=== PATIENT | female | born 1980 | race Caucasian/White ===

== ENCOUNTER 2021-04-28 12:49 | Emergency (ER) | payer OTHER ==
--- OUTSIDE RECORDS SUMMARY | 2021-04-28 12:53 | XMS REPORT | Continuity of Care Document ---
:1980 Author Organization [facility] t Address [address] [place] [address] Care Team Providers Name Role Phone Asked, Pcp Primary Care Physician Unavailable Caroline SINGH Attending Clinician Unavailable José PERES Attending Clinician Unavailable Charles VALENCIA Attending Clinician Unavailable Ritesh GAMBLE Attending Clinician Jossie Escobar LVN Attending Clinician Unavailable Jose Maria Attending Clinician Unavailable Jose Maria Attending Clinician Unavailable Jose Maria Admitting Clinician Unavailable Payers Payer Name Policy Type Policy Number Effective Date Expiration Date S terrie [facility] [id number] 2019 SSI 00:00:00 [facility] [id number] 2019 [facility] 00:00:00 Health [employer] [id number] 2018-Pr [phone]. [id number] [place] [address] Problems Condition Condition Condition Status Onset Resolution Last Treating Co mments Source Name Details Category Date Date Treatment Clinician Date Unspecifie Unspecifie Disease Active Overview : Russell d d 6-14 [facility] psychosis psychosis 00:00: g of this not due to not due to 00 note a a might be substance substance different or known or known from the physiologi physiologi original. miguel miguel [place] 1 condition condition Priority 1 Problem Problem Disease Active Overview: Phyllis is related to related to 05-15 [facility] primary primary 00:00: g of this support support 00 note group group might be different from the original. [place] 4 Priority 1 [place] V Disease Active Overview: Drew diagnosis diagnosis 6-14 [facility] 00:00: g of this 00 note might be different from the original. GAF Score:30 Allergies, Adverse Reactions, Alerts Allergy Allergy Status Severity Reaction(s) Onset Inactive Treating Comm ents Source Name Type Date Date Clinician kaylie DA Active [facility]14 Clear 00:00: Gr 00 [facility] lurasido DA Active U [facility] ne 12-15 Clear 00:00: Gr 00 [facility] No Known DA Active U 2018-12 [facility] Allergie 1-19 [facility] Lurasido Propensi Active Other Dystonic Phyllis is ne ty to 6-28 reaction Health adverse 00:00: reaction 00 s to drug Quetiapi Propensi Active Other alopecia Phyllis is ne ty to 6-28 Health adverse 00:00: reaction 00 s to drug No Known DA Active U [facility] Allergie 5-23 [facility] Social History Social Habit Start Date Stop Date Quantity Comments Source Sex Assigned At [facility] Tobacco use and 2021-03-28 2021-03-28 Never used [facility] exposure 00:00:00 00:00:00 Alcohol intake 2018-03-03 2018-03-03 Current [facility] 00:00:00 00:00:00 non-drinker of alcohol (finding) Smoking Status Start Date Stop Date Source Current every day smoker 2021-03-28 00:00:00 [facility] Former smoker 2018-03-03 00:00:00 2018-03-03 00:00:00 [facility] Medications Ordered Filled Start Stop Current Ordering Indication Dosage Frequency Signature Comments Components Source Medication Medication Date Date Medication? Clinician (SIG) Name Name lithium Yes Bipolar 1 300mg Take 1 Jacobson rris carbonate 03-28 disorder capsule by [facility] (ESKALI) 00:00: mouth 2 300 mg 00 times capsule daily (with meals) Take one tab in morning 300mg and one in evening 300mg for a week and then increase the evening dose to two tab 600mg. benztropine Yes Bipolar 1 TAKE 1 Drew (COGENTIN) 03-22 disorder TABLET BY [facility] 0.5 mg 00:00: MOUTH tablet 00 TWICE DAILY paliperidon Yes 156mg Harri s e (INVEGA 03-09 [facility] 00:00: 156 mg/mL 00 injection 156 mg haloperidoL 2020- No Bipolar 1 5mg Q.5D Take 1 Russell (HALDOL) 5 02-21- disorder tablet by [facility] mg tablet 00:00: 00:00 mouth 2 00 :00 times daily. haloperidol No 50mg Harri s decanoate 02-06- [facility] (HALDOL 14:30: 14:36 DECANOATE) 00 :00 100 mg/mL injection 50 mg haloperidol No 50mg Harri s decanoate 12-15 Health (HALDOL 00:00: 15:09 DECANOATE) 00 :00 100 mg/mL injection 50 mg haloperidol No Bipolar 1 75mg Inject Russell decanoate 12-14 disorder 0.75 mL He alth (HALDOL 00:00: 00:00 intramuscu DECANOATE) 00 :00 larly 100 mg/mL every 28 injection days. divalproex 2019-12 No Bipolar 1 500mg Take 1 Drew (DEPAKOTE 01-23- disorder tablet by [facility] ER) 500 mg 00:00: 00:00 mouth at extended 00 :00 bedtime release nightly. tablet benztropine 2019-12 No Bipolar 1 .5mg Q.5D Take 1 Drew (COGENTIN) 01-23- disorder tablet by [facility] 0.5 mg 00:00: 00:00 mouth 2 tablet 00 :00 times daily. hydrOXYzine 2019-12 No Bipolar 1 25mg Take 1 Drew (ATARAX) 25 01-23 disorder tablet by Health mg tablet 00:00: 23:59 mouth 2 00 :00 times daily as needed for up to 90 days for Anxiety or Insomnia. haloperidoL 2019-12 Bipolar 1 5mg Q.5D Take 1 Russell (HALDOL) 5 01-23 disorder tablet by Health mg tablet 00:00: 00:00 mouth 2 00 :00 times daily. haloperidol 2019-12 No 50mg Harri s decanoate 12-21 Health (HALDOL 00:00: 12:50 DECANOATE) 00 :00 100 mg/mL injection 50 mg divalproex 2019-12 Bipolar 1 500mg Take 1 [facility] (DEPAKOTE 11-22 disorder tablet by [facility] ER) 500 mg 00:00: 00:00 mouth at extended 00 :00 bedtime release nightly. tablet hydrOXYzine 2019-12 Bipolar 1 25mg Take 1 Russell (ATARAX) 25 11-22 disorder tablet by [facility] mg tablet 00:00: 00:00 mouth 3 00 :00 times daily as needed for up to 90 days for Anxiety or Insomnia. paliperidon No Bipolar 1 12mg Take 2 Russell e (INVEGA) 12-10 disorder tablets by [facility] 6 mg 00:00: 00:00 mouth extended 00 :00 every release morning. tablet lamoTRIgine No Bipolar 1 100mg QD Take 1 Russell (LAMICTAL) 12-10 disorder tablet by [facility] 100 mg 00:00: 00:00 mouth tablet 00 :00 daily. Immunizations Ordered Immunization Filled Immunization Date Status Commen ts Source Name Name Tdap (Tetanus 2017-03-06 Completed [facility] Toxoid, Reduced 00:00:00 Diphtheria Toxoid And Acellular Pertussis, Absorbed) Vital Signs Vital Name Observation Time Observation Value Comments Source Systolic blood pressure 2020-05-15 22:43:13 134 mm[Hg] [facility] Diastolic blood pressure 2020-05-15 22:43:13 83 mm[Hg] [facility] Heart rate 2020-05-15 22:43:13 96 /min [facility] ealt Body temperature 2020-05-15 22:43:13 36.78 [facility] is [facility] Respiratory rate 2020-05-15 22:43:13 18 /min [facility] Body height 2020-05-15 22:43:13 167.6 cm [facility] Procedures Procedure Date / Time Performed Performing Clinician Hernan horta VALPROIC ACID 2021-03-24 14:17:00 Deric Singh Drew cameron URINE DRUG SCREEN 2021-03-24 14:17:00 Deric Singh [facility] Plan of Care Planned Activity Planned Date Details Comments Source Future Scheduled 2021-09-01 IMM Influenza Drew [facility] Test 00:00:00 Seasonal Sep to January (>/= 19 yrs) [code = IMM Influenza Seasonal Sep to January (>/= 19 yrs)] Future Scheduled 2021-07-02 INFLUENZA VACCINE [place] [facility] Test 00:00:00 [code = INFLUENZA VACCINE] Future Scheduled 2018 Breast Cancer Scrn [facility] Test 00:00:00 (Yearly) [code = Breast Cancer Scrn (Yearly)] Future Scheduled 2008 Screening for Drew [facility] lt Test 00:00:00 malignant neoplasm of cervix (procedure) [code = 929969036] Future Scheduled 2008 Screening for Drew [facility] Test 00:00:00 malignant neoplasm of cervix (procedure) [code = 027813094] Future Scheduled 1999 Screening for [facility] thodi Test 00:00:00 malignant neoplasm of cervix (procedure) [code = 812905830] Future Scheduled 1994 COVID-19 Vaccine (1) [facility] Test 00:00:00 [code = COVID-19 Vaccine (1)] Future Scheduled 1990 COVID-19 VACCINE (1) [facility] Test 00:00:00 [code = COVID-19 VACCINE (1)] Encounters Start End Encounter Admission Attending Care Care Encounter Source Date/Time Date/Time Type Type Clinicians Facility Department ID 2021-06-13 2021-06-13 Outpatient DERIC SINGH [facility] [id number] Russell 00:00:00 00:00:00 Health 2021-04-25 2021-04-25 Outpatient [facility] [id number] [place] 00:00:00 00:00:00 Health 2021-04-25 2021-04-25 Outpatient [facility] [id number] [place] 00:00:00 00:00:00 Health 2021-04-17 2021-04-17 Outpatient [facility] [id number] Russell 00:00:00 00:00:00 [facility] 2021-04-17 2021-04-17 Outpatient [facility] [id number] Russell 00:00:00 00:00:00 [facility] 2021-03-28 2021-03-28 [id number] Russell 07:35:40 13:42:16 [facility] 2021-03-24 2021-03-24 [id number] Russell 14:17:05 14:17:28 [facility] 2021-03-24 2021-03-24 [facility] [id number] [place] 00:00:00 00:00:00 [facility] 2021-03-23 2021-03-23 Outpatient [facility] [id number] [place] 00:00:00 00:00:00 [facility] 2021-03-17 2021-03-17 [facility] [id number] [place] 14:59:34 14:59:57 [facility] 2021-03-17 2021-03-17 [facility] [id number] [place] 13:40:49 14:31:53 [facility] 2021-03-16 2021-03-16 Outpatient [facility] [id number] Russell 00:00:00 00:00:00 [facility] 2021-03-13 2021-03-13 Outpatient [facility] [id number] Russell 00:00:00 00:00:00 [facility] 2021-03-13 2021-03-13 Outpatient [facility] [id number] Russell 00:00:00 00:00:00 [facility] 2021-03-09 2021-03-09 Outpatient [facility] [id number] Russell 00:00:00 00:00:00 [facility] 2021-03-09 2021-03-09 Out[facility]INGH[facility] [id number] Russell 00:00:00 00:00:00 [facility] 2021-02-21 2021-02-21 [id number] Russell 07:39:21 16:15:45 [facility] 2021-02-06 2021-02-06 [id number] Russell 14:07:18 14:45:35 Health 2021-02-02 2021-02-02 Outpatient [facility] [id number] [place] 00:00:00 00:00:00 Health 2021-01-18 2021-01-18 Outpatient [facility] [id number] [place] 00:00:00 00:00:00 [facility] 2020-07-10 2020-07-25 Inpatient 1 Eloy Moise [facility] [id number] 14:13:00 17:30:00 Eloy Moise [facility] 2020-07-10 2020-07-10 Emergency [facility] [id number] 14:13:00 14:13:00 -[id number] [facility] 2020-03-17 2020-03-17 Outpatient [facility] [id number] [place] 00:00:00 00:00:00 [facility] 2020-02-04 2020-02-04 Outpatient [facility] [id number] [place] 00:00:00 00:00:00 [facility] 2019-12-10 2019-12-10 Outpatient [facility] [id number] [place] 10:54:01 10:54:01 [facility] 2019-11-12 2019-11-12 Outpatient [facility] [id number] [place] 00:00:00 00:00:00 [facility] 2019-09-10 2019-09-10 Outpatient [facility] [id number] [place] 08:11:17 08:11:17 [facility] 2019-09-10 2019-09-10 Outpatient [facility] [id number] [place] 00:00:00 00:00:00 [facility] 2019-09-03 2019-09-03 Outpatient [facility] [id number] [place] 12:57:21 12:57:21 Health 2019-08-21 2019-08-21 Outpatient [facility] [id number] [place] 00:00:00 00:00:00 [facility] 2019-05-29 2019-05-29 Outpatient [facility] [id number] [place] 13:55:46 13:55:46 Health Results Test Description Test Time Test Comments Results Result Comments Source POC Glucose 2020-07-22 11:12:55 Test Item Value Reference Range Interpretation Comme nts Glucose POC (test code = 149 mg/dL 70-115 H Not josie RN or MDIf you consider your Glucose POC) patient critica lly ill, the Jade-Accu Chec k Infrom II meter should not be u sed for Glucose determination. Draw a venous Glucose and send to the main Lab for analysis. Urine [id number] 10:59:13 C Urine Added by [id number] growth at 24 hours. No growth at 48 hours.RPR [id number] 15:47:25 Test Item Value Reference Range Interpretation Comments RPR Qual (test code = RPR Qual) Non-Reactive Non-Reactive Reactive Control (test code = Reactive Reactive Control) Weak Reactive Control (test Weak Reactive code = Weak Reactive Control) Non-Reactive Control (test code Non-Reactive = Non-Reactive Control) Lot # (test code = Lot #) [id number] Expiration Dt (test code = 08-31-21 N Expiration Dt) Lipid [id number] 13:28:37 Test Item Value Reference Range Interpretation Comments Cholesterol Total 143 mg/dL N Low-risk l evel (test code = (desirable) - < 200 Cholesterol Total) mg/dlMode rate-risk level (borderli ne) - 200-239 mg/dlHigh-risk level - ?240 mg/dl Triglycerides (test 80 mg/dL N Normal - <150 code = Triglycerides) mg/dlB orderline high - 150-199 mg/dl High - 200-499 mg/dl Very high - ?500 mg/ dl HDL (test code = HDL) 46.50 mg/dL N Low-ri sk level (desirable) - ? 60 mg/dlHigh-risk level (undesirable) - <40 mg/dl LDL (test code = LDL) 80 mg/dL N The eq uation being used in this calculation is LDL = (Chol - HDL) - (Trig / 5) VLDL (test code = 16 mg/dL 5-40 The equati on being VLDL) used in this calculation is VLDL = Trig / 5 Chol/HDL (test code = 3.1 ratio <=5.0 Chol/HDL) LDL/HDL Ratio (test 3 N The equa tion being code = LDL/HDL Ratio) used i n this calculation is LDL/HDL Ratio=L DL Calc/HDL Chol Thyroid Stimulating [id number] 13:28:37 Test Item Value Reference Range Interpretation Comments TSH (test code = TSH) 0.900 mcIU/mL 0.550-4.780 Hemoglobin [id number] 05:44:54 Test Item Value Reference Range Interpretation Comments Hemoglobin A1c (test code 4.4 % 4.0-5.8 Di abetic >=6.5 = Hemoglobin A1c) %Prediabet es 5.7-6.4 %Normal <5.7 % Novel Coronavirus SARS-CoV-2, [id number] 19:32:38 Test Item Value Reference Range Interpretation Comments SARS-CoV-2 PCR NEGATIVE Negative Positive resu lts are (test code = indicative of a ctive SARS-CoV-2 PCR) infection wi th SARS-CoV-2; clinical correl ation with patient history and other diagnostic info rmation is necessary to de termine patient infecti on status.Presumpt myron positive result s -INTERPRET WITH CAUTION: Resul t may not reflect if andrei ent is actually positi ve. Patient should be treat ed based on clinical suspic ions. Negative result s do not preclude SARS-C oV-2 infection and s hould not be used as the sole basis for treatment o r other patient managem ent decisions. Nega tive results must be combined with clinical observations, p atient history, and epidemiological information.The Xpert Xpress SARS-CoV -2 test is only for use un howie the Food and Drug Administration s Emergency Use Authorization." Urine [id number] [id number] 17:10:11 Test Item Value Reference Range Interpretation Comments Amphetamine Screen Ur Negative Negative The sp ecimen is (test code = presumptive pos itive Amphetamine Screen Ur) if th e analyte concentration i s equal to or greater t meraz 1000 ng/ml.If confirmation of positive result is desired, please order Amphetamine Confirmation, U rine within 7 days. Barbiturate Screen Ur Negative Negative The sp ecimen is (test code = presumptive pos itive Barbiturate Screen Ur) if th e analyte concentration i s equal to or greater t meraz 200 ng/ml.If confir mation of positive res ult is desired, please order Barbiturate Confirmation, U rine within 7 days. Benzodiazepines Ur Negative Negative The speci men is (test code = presumptive pos itive Benzodiazepines Ur) if the a nalyte concentration i s equal to or greater t meraz 200 ng/ml.If confir mation of positive res ult is desired, please order Benzodiazephine Confirmation, U rine within 7 days. Cocaine Screen Ur (test Negative Negative The specimen is code = Cocaine Screen presum ptive positive Ur) if the analyte concentration i s equal to or greater t meraz 300 ng/ml.If confir mation of positive res ult is desired, please order Cocaine Metabol ite Confirmation, U rine within 7 days. Opiate Screen Ur (test Negative Negative The s pecimen is code = Opiate Screen presump tive positive Ur) if the analyte concentration i s equal to or greater t meraz 2000 ng/ml.If confirmation of positive result is desired, please order Opiate Confirm ation, Urine within 7 days. U PCP Scrn (test code = Negative Negative The specimen is U PCP Scrn) presumptive pos itive if the analyte concentration i s equal to or greater t meraz 25 ng/ml.If confir mation of positive res ult is desired, please order Phencyclidine Confirmation, U rine within 7 days. Cannabinoid Screen Ur Negative Negative The sp ecimen is (test code = presumptive pos itive Cannabinoid Screen Ur) if th e analyte concentration i s equal to or greater t meraz 50 ng/ml.If confir mation of positive res ult is desired, please order Cannabinoid (TH C) Confirmation, U rine within 7 days. U Methadone Scr (test Negative Negative The sp ecimen is code = U Methadone Scr) pres umptive positive if the analyte concentration i s equal to or greater t meraz 300 ng/ml.If confir mation of positive res ult is desired, please order Methadone Confirmation, U rine within 7 days. U Propoxyphene (test Negative Negative The spe cimen is code = U Propoxyphene) presu mptive positive if the analyte concentration i s equal to or greater t meraz 300 ng/ml.If confir mation of positive res ult is desired, please order Propoxyphene Confirmation wi thin 7 days. Urinalysis [id number] 15:39:45 Test Item Value Reference Range Interpretation Comments UA WBC (test code = UA WBC) 0-5 0-5 UA RBC (test code = UA RBC) 6-10 0-5 A UA Bacteria (test code = UA Bacteria) Few A UA Squam Epithelial (test code = UA 6-10 A Squam Epithelial) UA Hyal Cast (test code = UA Hyal Cast) 6-10 A HCG Qualitative [id number] 15:35:32 Test Item Value Reference Range Interpretation Comments hCG Ur (test code = Negative If the r esult is hCG Ur) "Negative" in p atients suspected to be , recom mend retest with a s ample obtained 48 to 72 hours later, or by ordering a quantitative as say. If the result i s "Borderline" te sting should be repea miko in 48 to 72 hours. Lot # (test code = [id number] Lot #) Expiration Dt (test N code = Expiration Dt) Neg Control (test Negative code = Neg Control) Pos Control (test Positive code = Pos Control) Internal QC (test Acceptable code = Internal QC) Comprehensive Metabolic [id number] 15:35:18 Test Item Value Reference Range Interpretation Comments Sodium Level (test code = Sodium 138.0 mmol/L 136.0-145.0 Level) Potassium Level (test code = 4.00 mmol/L 3.50-5.10 Potassium Level) Chloride Level (test code = 105.0 mmol/L 98.0-107.0 Chloride Level) CO2 (test code = CO2) 27 mmol/L 20-31 Anion Gap (test code = Anion 6.1 mmol/L 5.0-15.0 Gap) BUN (test code = BUN) 13 mg/dL 9-23 Creatinine Level (test code = 0.96 mg/dL 0.55-1.02 Creatinine Level) BUN/Creat Ratio (test code = 13.5 ratio 10.0-20.0 BUN/Creat Ratio) Glucose Level (test code = 99 mg/dL 74-106 Glucose Level) Calcium Level (test code = 9.0 mg/dL 8.3-10.6 Calcium Level) Alk Phos (test code = Alk Phos) 102 U/L 46-116 Bilirubin Total (test code = 1.2 mg/dL 0.2-1.1 H Bilirubin Total) Albumin Level (test code = 4.1 g/dL 3.2-4.8 Albumin Level) Protein Total (test code = 6.8 g/dL 5.7-8.2 Protein Total) ALT (test code = ALT) 33 U/L 10-49 AST (test code = AST) 61 U/L <=34 H Globulin (test code = Globulin) 2.7 g/dL 2.3-3.5 A/G Ratio (test code = A/G 1.5 g/dL 0.8-2.0 Ratio) Hemolysis (test code = 0 g/dL 1-2 Hemolysis) Icterus (test code = Icterus) 0 g/dL 1-2 Lipemia (test code = Lipemia) 0 g/dL 1-2 Comprehensive Metabolic [id number] 15:35:18 Test Item Value Reference Range Interpretation Comments Sodium Level (test 138.0 mmol/L 136.0-145.0 code = Sodium Level) Potassium Level 4.00 mmol/L 3.50-5.10 (test code = Potassium Level) Chloride Level (test 105.0 mmol/L 98.0-107.0 code = Chloride Level) CO2 (test code = 27 mmol/L 20-31 CO2) Anion Gap (test code 6.1 mmol/L 5.0-15.0 = Anion Gap) BUN (test code = 13 mg/dL 9-23 BUN) Creatinine Level 0.96 mg/dL 0.55-1.02 (test code = Creatinine Level) BUN/Creat Ratio 13.5 ratio 10.0-20.0 (test code = BUN/Creat Ratio) Glucose Level (test 99 mg/dL 74-106 code = Glucose Level) Calcium Level (test 9.0 mg/dL 8.3-10.6 code = Calcium Level) Alk Phos (test code 102 U/L 46-116 = Alk Phos) Bilirubin Total 1.2 mg/dL 0.2-1.1 H (test code = Bilirubin Total) Albumin Level (test 4.1 g/dL 3.2-4.8 code = Albumin Level) Protein Total (test 6.8 g/dL 5.7-8.2 code = Protein Total) ALT (test code = 33 U/L 10-49 ALT) AST (test code = 61 U/L <=34 H AST) Globulin (test code 2.7 g/dL 2.3-3.5 = Globulin) A/G Ratio (test code 1.5 g/dL 0.8-2.0 = A/G Ratio) eGFR AA (test code = >60 >=60 eGFR (e stimated eGFR AA) mL/min/1.73 m2 Glomerular Filtration Rate ) is an estimated va lue, calculated from the patient's serum creatinine usin g the MDRD equation. It is NOT the patient 's actual GFR. The eGFR provides a more clinically usef ul measure of kidn ey disease than se rum creatinine alone.This calculation don es sex and race in to account, if the information is provided. If th e race is not provided, and t he patient is -Rama n, multiply by 1.2 12. If sex is not provided, and t he patient is fema le, multiply by 0.7 42. Results for pat ients <18 years of ag e have not been validated by th e MDRD study and should be interpreted wit h caution. eGFR R esult Interpretation: eGFR > or = 60 is in the Normal RangeeGF R < 60 may mean kid constantino diseaseeGFR < 1 5 may mean kidney failure Rang es recommended by the National Kidney Foundation, http://nkdep.ni h.gov Hemolysis (test code 0 g/dL 1-2 = Hemolysis) Icterus (test code = 0 g/dL 1-2 Icterus) Lipemia (test code = 0 g/dL 1-2 Lipemia) Alcohol [id number] 15:35:18 Test Item Value Reference Range Interpretation Comments Ethanol Level <3.0 mg/dL N The pharmacolo gical (test code = response to blo od alcohol Ethanol Level) levels may va ry from individual to i ndividual. The fatal afsaneh ntration has been report ed to be >400 mg/dl. Comprehensive Metabolic [id number] 15:35:18 Test Item Value Reference Range Interpretation Comments Sodium Level (test 138.0 mmol/L 136.0-145.0 code = Sodium Level) Potassium Level 4.00 mmol/L 3.50-5.10 (test code = Potassium Level) Chloride Level (test 105.0 mmol/L 98.0-107.0 code = Chloride Level) CO2 (test code = 27 mmol/L 20-31 CO2) Anion Gap (test code 6.1 mmol/L 5.0-15.0 = Anion Gap) BUN (test code = 13 mg/dL 9-23 BUN) Creatinine Level 0.96 mg/dL 0.55-1.02 (test code = Creatinine Level) BUN/Creat Ratio 13.5 ratio 10.0-20.0 (test code = BUN/Creat Ratio) Glucose Level (test 99 mg/dL 74-106 code = Glucose Level) Calcium Level (test 9.0 mg/dL 8.3-10.6 code = Calcium Level) Alk Phos (test code 102 U/L 46-116 = Alk Phos) Bilirubin Total 1.2 mg/dL 0.2-1.1 H (test code = Bilirubin Total) Albumin Level (test 4.1 g/dL 3.2-4.8 code = Albumin Level) Protein Total (test 6.8 g/dL 5.7-8.2 code = Protein Total) ALT (test code = 33 U/L 10-49 ALT) AST (test code = 61 U/L <=34 H AST) Globulin (test code 2.7 g/dL 2.3-3.5 = Globulin) A/G Ratio (test code 1.5 g/dL 0.8-2.0 = A/G Ratio) eGFR AA (test code = >60 >=60 eGFR (e stimated eGFR AA) mL/min/1.73 m2 Glomerular Filtration Rate ) is an estimated va lue, calculated from the patient's serum creatinine usin g the MDRD equation. It is NOT the patient 's actual GFR. The eGFR provides a more clinically usef ul measure of kidn ey disease than se rum creatinine alone.This calculation don es sex and race in to account, if the information is provided. If th e race is not provided, and t he patient is -Rama n, multiply by 1.2 12. If sex is not provided, and t he patient is fema le, multiply by 0.7 42. Results for pat ients <18 years of ag e have not been validated by th e MDRD study and should be interpreted wit h caution. eGFR R esult Interpretation: eGFR > or = 60 is in the Normal RangeeGF R < 60 may mean kid constantino diseaseeGFR < 1 5 may mean kidney failure Rang es recommended by the National Kidney Foundation, http://nkdep.ni h.gov eGFR Non-AA (test >60.00 >=60.00 eGFR (jason mated code = eGFR Non-AA) mL/min/1.73 m2 Glomer ular Filtration Rate ) is an estimated va lue, calculated from the patient's serum creatinine usin g the MDRD equation. It is NOT the patient 's actual GFR. The eGFR provides a more clinically usef ul measure of kidn ey disease than se rum creatinine alone.This calculation don es sex and race in to account, if the information is provided. If th e race is not provided, and t he patient is -Rama n, multiply by 1.2 12. If sex is not provided, and t he patient is fema le, multiply by 0.7 42. Results for pat ients <18 years of ag e have not been validated by th e MDRD study and should be interpreted wit h caution. eGFR R esult Interpretation: eGFR > or = 60 is in the Normal RangeeGF R < 60 may mean kid constantino diseaseeGFR < 1 5 may mean kidney failure Rang es recommended by the National Kidney Foundation, http://nkdep.ni h.gov Hemolysis (test code 0 g/dL 1-2 = Hemolysis) Icterus (test code = 0 g/dL 1-2 Icterus) Lipemia (test code = 0 g/dL 1-2 Lipemia) Urinalysis with Culture, if [id number] 15:34:24 Test Item Value Reference Range Interpretation Comments UA Color (test code = UA Color) YELLO Yellow UA Appear (test code = UA Appear) CLEAR Clear UA pH (test code = UA pH) 6.0 UA Spec Grav (test code = UA Spec 1.030 1.001-1.035 Grav) UA Glucose (test code = UA Glucose) NEG Negative UA Bili (test code = UA Bili) 1 mg/dL Negative A UA Ketones (test code = UA Ketones) 5 mg/dL Negative UA Blood (test code = UA Blood) MOD Negative A UA Protein (test code = UA Protein) 25 mg/dL Negative A UA Urobilinogen (test code = UA .2 mg/dL >0.2 Urobilinogen) UA Nitrite (test code = UA Nitrite) NEG Negative UA Leuk Est (test code = UA Leuk NEG Negative Est) UA Micro Ind? (test code = UA Micro Indicated Not Indicated A Ind?) Complete Blood Count with [id number] 15:14:36 Test Item Value Reference Range Interpretation Comments WBC (test code = WBC) 9.5 x10 4.4-10.5 RBC (test code = RBC) 4.56 x10 3.75-5.20 Hgb (test code = Hgb) 14.1 g/dL 12.2-14.8 MCV (test code = MCV) 99.30 fL 80.00-100.00 Hct (test code = Hct) 45.3 % 36.5-44.4 H MCHC (test code = 31.10 g/dL 32.00-37.50 L MCHC) RDW CV (test code = 13.9 % 11.5-14.5 RDW CV) MCH (test code = MCH) 30.9 pg 27.0-32.5 Platelets (test code = 158.0 x10 140.0-440.0 Platelets) MPV (test code = MPV) 11.1 fL N Slide Review (test Auto Auto Result cr eated by code = Slide Review) GL_SJM_ SLIDE_REV_AUTO nRBC (test code = 0 N nRBC) NRBC Abs (test code = 0.00 x10 N NRBC Abs) IPF (test code = IPF) 0 % N Automated [id number] 15:14:36 Test Item Value Reference Range Interpretation Comments Neutro Auto (test code = Neutro 66.8 % 36.0-70.0 Auto) Lymph Auto (test code = Lymph Auto) 23.7 % 12.0-44.0 Elmore Auto (test code = Elmore Auto) 7.7 % 0.0-11.0 Eos, Auto (test code = Eos, Auto) 1.0 % 0.0-7.0 Basophil Auto (test code = Basophil 0.5 % 0.0-2.0 Auto) Neutro Absolute (test code = Neutro 6.3 x10 1.6-7.4 Absolute) Lymph Absolute (test code = Lymph 2.24 x10 .50-4.60 Absolute) Elmore Absolute (test code = Elmore .73 x10 .00-1.20 Absolute) Eos Absolute (test code = Eos 0.09 x10 0.00-0.74 Absolute) Baso Absolute (test code = Baso 0.05 x10 0.00-0.21 Absolute) IG [id number] 15:14:36 Test Item Value Reference Range Interpretation Comments IG (test code = IG) 0.3 % 0.0-5.0 IG Abs (test code = IG Abs) 0 x10 N BASIC METABOLIC [id number] 19:20:00 Test Item Value Reference Range Interpretation Comments SODIUM (test code = 137 mmol/L 136-145 N NA) POTASSIUM (test code 3.5 mmol/L 3.5-5.1 N = K) CHLORIDE (test code = 100.0 mmol/L 98-107 N CL) CARBON DIOXIDE (test 29.0 mmol/L 21-32 N code = CO2) ANION GAP (test code 11.5 10-20 N = GAP) GLUCOSE (test code = 94 mg/dL 74-106 N GLU) BLOOD UREA NITROGEN 15 mg/dL 7-18 N (test code = BUN) GLOMERULAR FILTRATION > 60 mL/min >=60 Estima miko GFR by RATE (test code = using Rosalio fied MDRD GFR) formula.Chronic kidney disease is defined as eith er kidney damageor GFR <60 mL/min/1.73 m2 for >3 months. CREATININE (test code 1.00 mg/dL 0.55-1.02 N Note change in = CREAT) reference range due to change in reagent. BUN/CREATININE RATIO 14.9 10-20 N (test code = BUN/CREA) CALCIUM (test code = 8.8 mg/dL 8.5-10.1 N CA) HEPATIC FUNCTION [id number] 19:20:00 Test Item Value Reference Range Interpretation Comments TOTAL PROTEIN (test 6.7 gram/dL 6.4-8.2 N code = PROT) ALBUMIN (test code = 3.4 g/dL 3.4-5.0 N ALB) GLOBULIN (test code = 3.3 gram/dL 2.7-4.2 N GLOB) ALBUMIN/GLOBULIN RATIO 1.0 0.75-1.50 N (test code = A/G) BILIRUBIN TOTAL (test 1.30 mg/dL 0.0-1.0 H code = BILT) BILIRUBIN DIRECT (test 0.41 mg/dL 0.0-0.20 H code = BILD) SGOT/AST (test code = 38 IUnit/L 15-37 H AST) SGPT/ALT (test code = 23 IUnit/L 12-78 N ALT) ALKALINE PHOSPHATASE 113 IUnit/L 45-117 N Note change in TOTAL (test code = reference range due ALKP) to change in reagent. [id number] 19:20:00 Test Item Value Reference Range Interpretation Comments ALCOHOL (test code < 3 mg/dL 0.0-3.0 N --------- --------INTERPRE = ALC) TIVE DATA NOTE: POSITIVE SCREEN ING RESULTS SHOULD BE CONSIDERED PRESUMPTIVE.WHE N COLLECTED FOR M EDICAL PURPOSES ONLY. SPECIMEN WILL NOTBE ANAIS ECTED BY CHAIN OF CUSTOD Y.IF A CONFIRMATION OF POSITIVE RESULTS IS ASIF RED, ACONFIRMATION T EST MUST BE REQUESTED BY THE PHYSICIAN AT AN ADDITIONAL CHARGE TO THE P [facility] URINALYSIS [id number] 19:20:00 Test Item Value Reference Range Interpretation Comments UA COLOR (test code = Light-Yellow YELLOW COLU) UA APPEARANCE (test code CLEAR CLEAR = APPU) UA GLUCOSE DIPSTICK (test NEGATIVE mg/dL NEGATIVE code = DGLUU) UA BILIRUBIN DIPSTICK NEGATIVE mg/dL NEGATIVE (test code = BILU) UA KETONE DIPSTICK (test NEGATIVE mg/dL NEGATIVE code = KETU) UA SPECIFIC GRAVITY (test 1.013 1.001-1.035 code = SGU) UA BLOOD DIPSTICK (test 1.0 mg/dL (3+) mg/dL NEGATIVE A code = ANA) UA PH DIPSTICK (test code 5.0 5.0-8.0 = BRYANNA) UA PROTEIN DIPSTICK (test NEGATIVE mg/dL NEGATIVE code = PROU) UA UROBILINIOGEN DIPSTICK Normal mg/dL NEGATIVE (test code = URO) UA NITRITE DIPSTICK (test NEGATIVE NEGATIVE code = ISHA) UA LEUKOCYTE ESTERASE W 250 Meagan/uL (2+) NEGATIVE A REFLEX (test code = Meagan/uL LEUUR) UA WBC (test code = WBCU) 11-20 per HPF 0-5 A UA RBC (test code = RBCU) 0-2 #/HPF 0-5 UA EPITHELIAL CELLS (test FEW per HPF FEW code = EPIU) UA BACTERIA (test code = FEW #/HPF NONE A BACU) UA MUCUS (test code = FEW #/LPF FEW MUCU) Urine Source? Clean CatchDRUGS OF ABUSE SCREEN [id number] 19:20:00 Test Item Value Reference Range Interpretation Comments URN COCAINE (test code = COCAURN) NEGATIVE <300 ng/mL URN CANNABINOIDS (test code = NEGATIVE <50 ng/mL CANNABURN) URN AMPHETAMINE (test code = NEGATIVE <1000 ng/mL AMPHETURN) URN BARBITURATE (test code = NEGATIVE <200 ng/mL BARBITURN) URN BENZODIAZEPINE (test code = NEGATIVE <200 ng/mL BENZOURN) URN OPIATES (test code = OPIATURN) NEGATIVE <300 ng/mL URN PHENCYCLIDINE (PCP) (test code = NEGATIVE <25 ng/mL PHENCURN) URN METHADONE (test code = METHAURN) NEGATIVE <300 ng/mL Urine Source? Clean CatchBASIC METABOLIC [id number] 19:13:00 Test Item Value Reference Range Interpretation Comments SODIUM (test code = NA) 137 mmol/L 136-145 N POTASSIUM (test code = K) 3.5 mmol/L 3.5-5.1 N CHLORIDE (test code = CL) 100.0 mmol/L 98-107 N CARBON DIOXIDE (test code = CO2) mmol/L 21-32 ANION GAP (test code = GAP) 10-20 GLUCOSE (test code = GLU) mg/dL 74-106 BLOOD UREA NITROGEN (test code = mg/dL 7-18 BUN) GLOMERULAR FILTRATION RATE (test mL/min >=60 code = GFR) CREATININE (test code = CREAT) mg/dL 0.55-1.02 BUN/CREATININE RATIO (test code 10-20 = BUN/CREA) CALCIUM (test code = CA) mg/dL 8.5-10.1 HEPATIC FUNCTION [id number] 19:13:00 Test Item Value Reference Range Interpretation Comments TOTAL PROTEIN (test code = PROT) gram/dL 6.4-8.2 ALBUMIN (test code = ALB) g/dL 3.4-5.0 GLOBULIN (test code = GLOB) gram/dL 2.7-4.2 ALBUMIN/GLOBULIN RATIO (test code = 0.75-1.50 A/G) BILIRUBIN TOTAL (test code = BILT) mg/dL 0.0-1.0 BILIRUBIN DIRECT (test code = BILD) mg/dL 0.0-0.20 SGOT/AST (test code = AST) IUnit/L 15-37 SGPT/ALT (test code = ALT) IUnit/L 12-78 ALKALINE PHOSPHATASE TOTAL (test IUnit/L 45-117 code = ALKP) [id number] 19:13:00 Test Item Value Reference Range Interpretation Comments ALCOHOL (test code = ALC) mg/dL 0-3 CBC W/O [id number] 19:03:00 Test Item Value Reference Range Interpretation Comments WHITE BLOOD CELL (test code = 8.5 K/mm3 4.5-12.5 N WBC) RED BLOOD CELL (test code = 4.38 mill/mm3 3.7-5.2 N RBC) HEMOGLOBIN (test code = HGB) 13.8 gram/dL 11.5-15.5 N HEMATOCRIT (test code = HCT) 41.5 % 36.0-46.0 N MEAN CELL VOLUME (test code = 94.7 fL 80-98 N MCV) MEAN CELL HGB (test code = MCH) 31.5 picogram 27.0-33.0 N MEAN CELL HGB CONCETRATION 33.3 gram/dL 33.0-36.0 N (test code = MCHC) RED CELL DISTRIBUTION WIDTH 13.9 % 11.6-16.2 N (test code = RDW) PLATELET COUNT (test code = 167 K/mm3 150-450 N PLT) MEAN PLATELET VOLUME (test code 11.0 fL 6.7-11.0 N = MPV) URINALYSIS [id number] 19:03:00 Test Item Value Reference Range Interpretation Comments UA COLOR (test code = Light-Yellow YELLOW COLU) UA APPEARANCE (test code CLEAR CLEAR = APPU) UA GLUCOSE DIPSTICK (test NEGATIVE mg/dL NEGATIVE code = DGLUU) UA BILIRUBIN DIPSTICK NEGATIVE mg/dL NEGATIVE (test code = BILU) UA KETONE DIPSTICK (test NEGATIVE mg/dL NEGATIVE code = KETU) UA SPECIFIC GRAVITY (test 1.013 1.001-1.035 code = SGU) UA BLOOD DIPSTICK (test 1.0 mg/dL (3+) mg/dL NEGATIVE A code = ANA) UA PH DIPSTICK (test code 5.0 5.0-8.0 = BRYANNA) UA PROTEIN DIPSTICK (test NEGATIVE mg/dL NEGATIVE code = PROU) UA UROBILINIOGEN DIPSTICK Normal mg/dL NEGATIVE (test code = URO) UA NITRITE DIPSTICK (test NEGATIVE NEGATIVE code = ISHA) UA LEUKOCYTE ESTERASE W 250 Meagan/uL (2+) NEGATIVE A REFLEX (test code = Meagan/uL LEUUR) UA WBC (test code = WBCU) 11-20 per HPF 0-5 A UA RBC (test code = RBCU) 0-2 #/HPF 0-5 UA EPITHELIAL CELLS (test FEW per HPF FEW code = EPIU) UA BACTERIA (test code = FEW #/HPF NONE A BACU) UA MUCUS (test code = FEW #/LPF FEW MUCU) Urine Source? Clean CatchDRUGS OF ABUSE SCREEN [id number] 19:03:00 Test Item Value Reference Range Interpretation Comments URN COCAINE (test code = COCAURN) <300 ng/mL URN CANNABINOIDS (test code = <50 ng/mL CANNABURN) URN AMPHETAMINE (test code = AMPHETURN) <1000 ng/mL URN BARBITURATE (test code = BARBITURN) <200 ng/mL URN BENZODIAZEPINE (test code = <200 ng/mL BENZOURN) URN OPIATES (test code = OPIATURN) <300 ng/mL URN PHENCYCLIDINE (PCP) (test code = <25 ng/mL PHENCURN) URN METHADONE (test code = METHAURN) <300 ng/mL Urine Source? Clean CatchCBC W/O [id number] 18:59:00 Test Item Value Reference Range Interpretation Comments WHITE BLOOD CELL (test code = K/mm3 4.5-12.5 WBC) RED BLOOD CELL (test code = RBC) mill/mm3 3.7-5.2 HEMOGLOBIN (test code = HGB) 13.8 gram/dL 11.5-15.5 N HEMATOCRIT (test code = HCT) 41.5 % 36.0-46.0 N MEAN CELL VOLUME (test code = fL 80-98 MCV) MEAN CELL HGB (test code = MCH) picogram 27.0-33.0 MEAN CELL HGB CONCETRATION (test gram/dL 33.0-36.0 code = MCHC) RED CELL DISTRIBUTION WIDTH % 11.6-16.2 (test code = RDW) PLATELET COUNT (test code = PLT) 167 K/mm3 150-450 N MEAN PLATELET VOLUME (test code fL 6.7-11.0 = MPV) URINALYSIS [id number] 10:57:00 Test Item Value Reference Range Interpretation Comments UA COLOR (test code = Light-Yellow YELLOW COLU) UA APPEARANCE (test code CLEAR CLEAR = APPU) UA GLUCOSE DIPSTICK (test NEGATIVE mg/dL NEGATIVE code = DGLUU) UA BILIRUBIN DIPSTICK NEGATIVE mg/dL NEGATIVE (test code = BILU) UA KETONE DIPSTICK (test TRACE mg/dL NEGATIVE A code = KETU) UA SPECIFIC GRAVITY (test 1.010 1.001-1.035 code = SGU) UA BLOOD DIPSTICK (test Negative mg/dL NEGATIVE code = ANA) UA PH DIPSTICK (test code 5.5 5.0-8.0 = BRYANNA) UA PROTEIN DIPSTICK (test NEGATIVE mg/dL NEGATIVE code = PROU) UA UROBILINIOGEN DIPSTICK Normal mg/dL NEGATIVE (test code = URO) UA NITRITE DIPSTICK (test NEGATIVE NEGATIVE code = ISHA) UA LEUKOCYTE ESTERASE W 75 Meagan/uL (1+) NEGATIVE A REFLEX (test code = Meagan/uL LEUUR) UA WBC (test code = WBCU) 0-5 per HPF 0-5 UA RBC (test code = RBCU) 0-2 #/HPF 0-5 UA EPITHELIAL CELLS (test FEW per HPF FEW code = EPIU) UA BACTERIA (test code = FEW #/HPF NONE A BACU) UA MUCUS (test code = FEW #/LPF FEW MUCU) Urine Source? Clean CatchDRUGS OF ABUSE SCREEN [id number] 10:57:00 Test Item Value Reference Range Interpretation Comments URN COCAINE (test NEGATIVE <300 ng/mL code = COCAURN) URN CANNABINOIDS NEGATIVE <50 ng/mL (test code = CANNABURN) URN AMPHETAMINE (test POSITIVE <1000 ng/mL A This t est provides only a code = AMPHETURN) preliminar y test result. A morespecific alternate chemical method must be used in order t oobtain a confirmed geeta tical result. Gas chromatography/ mass spectrometry (G C/MS) is thepreferred co nfirmatory method. Other chemical confirmationmet hods are available. Cli nical consideration a nd professional ju dgment should be appli ed to any drug of abusete st result, particularly wh en preliminary pos itive resultsare used.Unconfirme d screening resul ts must not be used fornon-medical purposes (e.g., employme nt testing, legalt esting). URN BARBITURATE (test NEGATIVE <200 ng/mL code = BARBITURN) URN BENZODIAZEPINE NEGATIVE <200 ng/mL (test code = BENZOURN) URN OPIATES (test NEGATIVE <300 ng/mL code = OPIATURN) URN PHENCYCLIDINE NEGATIVE <25 ng/mL (PCP) (test code = PHENCURN) URN METHADONE (test NEGATIVE <300 ng/mL code = METHAURN) Urine Source? Clean CatchURINALYSIS [id number] 10:24:00 Test Item Value Reference Range Interpretation Comments UA COLOR (test code = Light-Yellow YELLOW COLU) UA APPEARANCE (test code CLEAR CLEAR = APPU) UA GLUCOSE DIPSTICK (test NEGATIVE mg/dL NEGATIVE code = DGLUU) UA BILIRUBIN DIPSTICK NEGATIVE mg/dL NEGATIVE (test code = BILU) UA KETONE DIPSTICK (test TRACE mg/dL NEGATIVE A code = KETU) UA SPECIFIC GRAVITY (test 1.010 1.001-1.035 code = SGU) UA BLOOD DIPSTICK (test Negative mg/dL NEGATIVE code = ANA) UA PH DIPSTICK (test code 5.5 5.0-8.0 = BRYANNA) UA PROTEIN DIPSTICK (test NEGATIVE mg/dL NEGATIVE code = PROU) UA UROBILINIOGEN DIPSTICK Normal mg/dL NEGATIVE (test code = URO) UA NITRITE DIPSTICK (test NEGATIVE NEGATIVE code = ISHA) UA LEUKOCYTE ESTERASE W 75 Meagan/uL (1+) NEGATIVE A REFLEX (test code = Meagan/uL LEUUR) UA WBC (test code = WBCU) 0-5 per HPF 0-5 UA RBC (test code = RBCU) 0-2 #/HPF 0-5 UA EPITHELIAL CELLS (test FEW per HPF FEW code = EPIU) UA BACTERIA (test code = FEW #/HPF NONE A BACU) UA MUCUS (test code = FEW #/LPF FEW MUCU) Urine Source? Clean CatchDRUGS OF ABUSE SCREEN [id number] 10:24:00 Test Item Value Reference Range Interpretation Comments URN COCAINE (test code = COCAURN) <300 ng/mL URN CANNABINOIDS (test code = <50 ng/mL CANNABURN) URN AMPHETAMINE (test code = AMPHETURN) <1000 ng/mL URN BARBITURATE (test code = BARBITURN) <200 ng/mL URN BENZODIAZEPINE (test code = <200 ng/mL BENZOURN) URN OPIATES (test code = OPIATURN) <300 ng/mL URN PHENCYCLIDINE (PCP) (test code = <25 ng/mL PHENCURN) URN METHADONE (test code = METHAURN) <300 ng/mL Urine Source? Clean CatchURINALYSIS [id number] 10:22:00 Test Item Value Reference Range Interpretation Comments UA COLOR (test code = Light-Yellow YELLOW COLU) UA APPEARANCE (test code CLEAR CLEAR = APPU) UA GLUCOSE DIPSTICK (test NEGATIVE mg/dL NEGATIVE code = DGLUU) UA BILIRUBIN DIPSTICK NEGATIVE mg/dL NEGATIVE (test code = BILU) UA KETONE DIPSTICK (test TRACE mg/dL NEGATIVE A code = KETU) UA SPECIFIC GRAVITY (test 1.010 1.001-1.035 code = SGU) UA BLOOD DIPSTICK (test Negative mg/dL NEGATIVE code = ANA) UA PH DIPSTICK (test code 5.5 5.0-8.0 = BRYANNA) UA PROTEIN DIPSTICK (test NEGATIVE mg/dL NEGATIVE code = PROU) UA UROBILINIOGEN DIPSTICK Normal mg/dL NEGATIVE (test code = URO) UA NITRITE DIPSTICK (test NEGATIVE NEGATIVE code = ISHA) UA LEUKOCYTE ESTERASE W 75 Meagan/uL (1+) NEGATIVE A REFLEX (test code = Meagan/uL LEUUR) UA WBC (test code = WBCU) per HPF 0-5 UA RBC (test code = RBCU) per HPF 0-5 UA EPITHELIAL CELLS (test per HPF Few code = EPIU) UA BACTERIA (test code = per HPF NONE BACU) Urine Source? Clean CatchDRUGS OF ABUSE SCREEN [id number] 10:22:00 Test Item Value Reference Range Interpretation Comments URN COCAINE (test code = COCAURN) <300 ng/mL URN CANNABINOIDS (test code = <50 ng/mL CANNABURN) URN AMPHETAMINE (test code = AMPHETURN) <1000 ng/mL URN BARBITURATE (test code = BARBITURN) <200 ng/mL URN BENZODIAZEPINE (test code = <200 ng/mL BENZOURN) URN OPIATES (test code = OPIATURN) <300 ng/mL URN PHENCYCLIDINE (PCP) (test code = <25 ng/mL PHENCURN) URN METHADONE (test code = METHAURN) <300 ng/mL Urine Source? Clean CatchBASIC METABOLIC [id number] 00:03:00 Test Item Value Reference Range Interpretation Comments SODIUM (test code = 137 mmol/L 136-145 N NA) POTASSIUM (test code 3.9 mmol/L 3.5-5.1 N = K) CHLORIDE (test code = 103.0 mmol/L 98-107 N CL) CARBON DIOXIDE (test 27.0 mmol/L 21-32 N code = CO2) ANION GAP (test code 10.9 10-20 N = GAP) GLUCOSE (test code = 95 mg/dL 74-106 N GLU) BLOOD UREA NITROGEN 8 mg/dL 7-18 N (test code = BUN) GLOMERULAR FILTRATION > 60 mL/min >=60 Estima miko GFR by RATE (test code = using Rosalio fied MDRD GFR) formula.Chronic kidney disease is defined as eith er kidney damageor GFR <60 mL/min/1.73 m2 for >3 months. CREATININE (test code 0.70 mg/dL 0.55-1.02 N Note change in = CREAT) reference range due to change in reagent. BUN/CREATININE RATIO 11.4 10-20 N (test code = BUN/CREA) CALCIUM (test code = 9.2 mg/dL 8.5-10.1 N CA) HEPATIC FUNCTION [id number] 00:03:00 Test Item Value Reference Range Interpretation Comments TOTAL PROTEIN (test 7.5 gram/dL 6.4-8.2 N code = PROT) ALBUMIN (test code = 4.0 g/dL 3.4-5.0 N ALB) GLOBULIN (test code = 3.5 gram/dL 2.7-4.2 N GLOB) ALBUMIN/GLOBULIN RATIO 1.1 0.75-1.50 N (test code = A/G) BILIRUBIN TOTAL (test 0.70 mg/dL 0.0-1.0 N code = BILT) BILIRUBIN DIRECT (test 0.23 mg/dL 0.0-0.20 H code = BILD) SGOT/AST (test code = 53 IUnit/L 15-37 H AST) SGPT/ALT (test code = 71 IUnit/L 12-78 N ALT) ALKALINE PHOSPHATASE 115 IUnit/L 45-117 N Note change in TOTAL (test code = reference range due ALKP) to change in reagent. HCG SERUM [id number] 00:03:00 Test Item Value Reference Range Interpretation Comments HCG SERUM QUAL (test NEGATIVE NEGATIVE This HC GQL test is NOT code = HCGQL) applicable for MALE patients.Check with nurse about probable order error.If Tumor Marker Test needed, nu rse should order test "HCG TU"(Test #[id number])---- - [id number] 00:03:00 Test Item Value Reference Range Interpretation Comments ACETAMINOPHEN (test < 10 mcg/mL 10-30 L A RANGE OF 10-30 code = ACET) mcg/mL IS A THERAPEUTIC RAN GE. TOXIC CONCENTRATIONS: >150 mcg/mL AT 4 MISSY RS AFTER INGESTION >= 50 mcg/mL AT 12 HOURS AFTER INGESTION [id number] 00:03:00 Test Item Value Reference Range Interpretation Comments SALICYLATE (test code = RM) 2.5 mg/dL 2.8-20.0 L [id number] 00:03:00 Test Item Value Reference Range Interpretation Comments ALCOHOL (test code < 3 mg/dL 0.0-3.0 N --------- --------INTERPRE = ALC) TIVE DATA NOTE: POSITIVE SCREEN ING RESULTS SHOULD BE CONSIDERED PRESUMPTIVE.WHE N COLLECTED FOR M EDICAL PURPOSES ONLY. SPECIMEN WILL NOTBE ANAIS ECTED BY CHAIN OF CUSTOD Y.IF A CONFIRMATION OF POSITIVE RESULTS IS ASIF RED, ACONFIRMATION T EST MUST BE REQUESTED BY THE PHYSICIAN AT AN ADDITIONAL CHARGE TO THE P ATIENT. BASIC METABOLIC [id number] 23:56:00 Test Item Value Reference Range Interpretation Comments SODIUM (test code = 137 mmol/L 136-145 N NA) POTASSIUM (test code 3.9 mmol/L 3.5-5.1 N = K) CHLORIDE (test code = 103.0 mmol/L 98-107 N CL) CARBON DIOXIDE (test 27.0 mmol/L 21-32 N code = CO2) ANION GAP (test code 10.9 10-20 N = GAP) GLUCOSE (test code = 95 mg/dL 74-106 N GLU) BLOOD UREA NITROGEN 8 mg/dL 7-18 N (test code = BUN) GLOMERULAR FILTRATION > 60 mL/min >=60 Estima miko GFR by RATE (test code = using Rosalio fied MDRD GFR) formula.Chronic kidney disease is defined as eith er kidney damageor GFR <60 mL/min/1.73 m2 for >3 months. CREATININE (test code 0.70 mg/dL 0.55-1.02 N Note change in = CREAT) reference range due to change in reagent. BUN/CREATININE RATIO 11.4 10-20 N (test code = BUN/CREA) CALCIUM (test code = 9.2 mg/dL 8.5-10.1 N CA) HEPATIC FUNCTION [id number] 23:56:00 Test Item Value Reference Range Interpretation Comments TOTAL PROTEIN (test 7.5 gram/dL 6.4-8.2 N code = PROT) ALBUMIN (test code = 4.0 g/dL 3.4-5.0 N ALB) GLOBULIN (test code = 3.5 gram/dL 2.7-4.2 N GLOB) ALBUMIN/GLOBULIN RATIO 1.1 0.75-1.50 N (test code = A/G) BILIRUBIN TOTAL (test 0.70 mg/dL 0.0-1.0 N code = BILT) BILIRUBIN DIRECT (test 0.23 mg/dL 0.0-0.20 H code = BILD) SGOT/AST (test code = 53 IUnit/L 15-37 H AST) SGPT/ALT (test code = 71 IUnit/L 12-78 N ALT) ALKALINE PHOSPHATASE 115 IUnit/L 45-117 N Note change in TOTAL (test code = reference range due ALKP) to change in reagent. HCG SERUM [id number] 23:56:00 Test Item Value Reference Range Interpretation Comments HCG SERUM QUAL (test NEGATIVE NEGATIVE This HC GQL test is NOT code = HCGQL) applicable for MALE patients.Check with nurse about probable order error.If Tumor Marker Test needed, nu rse should order test "HCG TU"(Test #[id number])---- - [id number] 23:56:00 Test Item Value Reference Range Interpretation Comments ACETAMINOPHEN (test < 10 mcg/mL 10-30 L A RANGE OF 10-30 code = ACET) mcg/mL IS A THERAPEUTIC RAN GE. TOXIC CONCENTRATIONS: >150 mcg/mL AT 4 MISSY RS AFTER INGESTION >= 50 mcg/mL AT 12 HOURS AFTER INGESTION [id number] 23:56:00 Test Item Value Reference Range Interpretation Comments SALICYLATE (test code = MR) 2.5 mg/dL 2.8-20.0 L [id number] 23:56:00 Test Item Value Reference Range Interpretation Comments ALCOHOL (test code = ALC) mg/dL 0-3 BASIC METABOLIC [id number] 23:39:00 Test Item Value Reference Range Interpretation Comments SODIUM (test code = 137 mmol/L 136-145 N NA) POTASSIUM (test code 3.9 mmol/L 3.5-5.1 N = K) CHLORIDE (test code = 103.0 mmol/L 98-107 N CL) CARBON DIOXIDE (test 27.0 mmol/L 21-32 N code = CO2) ANION GAP (test code 10.9 10-20 N = GAP) GLUCOSE (test code = 95 mg/dL 74-106 N GLU) BLOOD UREA NITROGEN 8 mg/dL 7-18 N (test code = BUN) GLOMERULAR FILTRATION > 60 mL/min >=60 Estima miko GFR by RATE (test code = using Rosalio fied MDRD GFR) formula.Chronic kidney disease is defined as eith er kidney damageor GFR <60 mL/min/1.73 m2 for >3 months. CREATININE (test code 0.70 mg/dL 0.55-1.02 N Note change in = CREAT) reference range due to change in reagent. BUN/CREATININE RATIO 11.4 10-20 N (test code = BUN/CREA) CALCIUM (test code = 9.2 mg/dL 8.5-10.1 N CA) HEPATIC FUNCTION [id number] 23:39:00 Test Item Value Reference Range Interpretation Comments TOTAL PROTEIN (test 7.5 gram/dL 6.4-8.2 N code = PROT) ALBUMIN (test code = 4.0 g/dL 3.4-5.0 N ALB) GLOBULIN (test code = 3.5 gram/dL 2.7-4.2 N GLOB) ALBUMIN/GLOBULIN RATIO 1.1 0.75-1.50 N (test code = A/G) BILIRUBIN TOTAL (test 0.70 mg/dL 0.0-1.0 N code = BILT) BILIRUBIN DIRECT (test 0.23 mg/dL 0.0-0.20 H code = BILD) SGOT/AST (test code = 53 IUnit/L 15-37 H AST) SGPT/ALT (test code = 71 IUnit/L 12-78 N ALT) ALKALINE PHOSPHATASE 115 IUnit/L 45-117 N Note change in TOTAL (test code = reference range due ALKP) to change in reagent. HCG SERUM [id number] 23:39:00 Test Item Value Reference Range Interpretation Comments HCG SERUM QUAL (test NEGATIVE NEGATIVE This HC GQL test is NOT code = HCGQL) applicable for MALE patients.Check with nurse about probable order error.If Tumor Marker Test needed, nu rse should order test "HCG TU"(Test #550.95270)---- - [id number] 23:39:00 Test Item Value Reference Range Interpretation Comments ACETAMINOPHEN (test code = ACET) mcg/mL 10-30 [id number] 23:39:00 Test Item Value Reference Range Interpretation Comments SALICYLATE (test code = RM) 2.5 mg/dL 2.8-20.0 L [id number] 23:39:00 Test Item Value Reference Range Interpretation Comments ALCOHOL (test code = ALC) mg/dL 0-3 BASIC METABOLIC [id number] 23:38:00 Test Item Value Reference Range Interpretation Comments SODIUM (test code = NA) 137 mmol/L 136-145 N POTASSIUM (test code = K) 3.9 mmol/L 3.5-5.1 N CHLORIDE (test code = CL) 103.0 mmol/L 98-107 N CARBON DIOXIDE (test code = CO2) mmol/L 21-32 ANION GAP (test code = GAP) 10-20 GLUCOSE (test code = GLU) mg/dL 74-106 BLOOD UREA NITROGEN (test code = mg/dL 7-18 BUN) GLOMERULAR FILTRATION RATE (test mL/min >=60 code = GFR) CREATININE (test code = CREAT) mg/dL 0.55-1.02 BUN/CREATININE RATIO (test code 10-20 = BUN/CREA) CALCIUM (test code = CA) mg/dL 8.5-10.1 HEPATIC FUNCTION [id number] 23:38:00 Test Item Value Reference Range Interpretation Comments TOTAL PROTEIN (test code = PROT) gram/dL 6.4-8.2 ALBUMIN (test code = ALB) g/dL 3.4-5.0 GLOBULIN (test code = GLOB) gram/dL 2.7-4.2 ALBUMIN/GLOBULIN RATIO (test code = 0.75-1.50 A/G) BILIRUBIN TOTAL (test code = BILT) mg/dL 0.0-1.0 BILIRUBIN DIRECT (test code = BILD) mg/dL 0.0-0.20 SGOT/AST (test code = AST) IUnit/L 15-37 SGPT/ALT (test code = ALT) IUnit/L 12-78 ALKALINE PHOSPHATASE TOTAL (test IUnit/L 45-117 code = ALKP) HCG SERUM [id number] 23:38:00 Test Item Value Reference Range Interpretation Comments HCG SERUM QUAL (test NEGATIVE NEGATIVE This HC GQL test is NOT code = HCGQL) applicable for MALE patients.Check with nurse about probable order error.If Tumor Marker Test needed, nu rse should order test "HCG TU"(Test #[id number])---- - [id number] 23:38:00 Test Item Value Reference Range Interpretation Comments ACETAMINOPHEN (test code = ACET) mcg/mL 10-30 [id number] 23:38:00 Test Item Value Reference Range Interpretation Comments SALICYLATE (test code = RM) mg/dL 2.8-20.0 [id number] 23:38:00 Test Item Value Reference Range Interpretation Comments ALCOHOL (test code = ALC) mg/dL 0-3 BASIC METABOLIC [id number] 23:26:00 Test Item Value Reference Range Interpretation Comments SODIUM (test code = NA) 137 mmol/L 136-145 N POTASSIUM (test code = K) 3.9 mmol/L 3.5-5.1 N CHLORIDE (test code = CL) 103.0 mmol/L 98-107 N CARBON DIOXIDE (test code = CO2) mmol/L 21-32 ANION GAP (test code = GAP) 10-20 GLUCOSE (test code = GLU) mg/dL 74-106 BLOOD UREA NITROGEN (test code = mg/dL 7-18 BUN) GLOMERULAR FILTRATION RATE (test mL/min >=60 code = GFR) CREATININE (test code = CREAT) mg/dL 0.55-1.02 BUN/CREATININE RATIO (test code 10-20 = BUN/CREA) CALCIUM (test code = CA) mg/dL 8.5-10.1 HEPATIC FUNCTION [id number] 23:26:00 Test Item Value Reference Range Interpretation Comments TOTAL PROTEIN (test code = PROT) gram/dL 6.4-8.2 ALBUMIN (test code = ALB) g/dL 3.4-5.0 GLOBULIN (test code = GLOB) gram/dL 2.7-4.2 ALBUMIN/GLOBULIN RATIO (test code = 0.75-1.50 A/G) BILIRUBIN TOTAL (test code = BILT) mg/dL 0.0-1.0 BILIRUBIN DIRECT (test code = BILD) mg/dL 0.0-0.20 SGOT/AST (test code = AST) IUnit/L 15-37 SGPT/ALT (test code = ALT) IUnit/L 12-78 ALKALINE PHOSPHATASE TOTAL (test IUnit/L 45-117 code = ALKP) HCG SERUM [id number] 23:26:00 Test Item Value Reference Range Interpretation Comments HCG SERUM QUAL (test code = HCGQL) NEGATIVE [id number] 23:26:00 Test Item Value Reference Range Interpretation Comments ACETAMINOPHEN (test code = ACET) mcg/mL 10-30 [id number] 23:26:00 Test Item Value Reference Range Interpretation Comments SALICYLATE (test code = RM) mg/dL 2.8-20.0 [id number] 23:26:00 Test Item Value Reference Range Interpretation Comments ALCOHOL (test code = ALC) mg/dL 0-3 CBC W/O [id number] 23:07:00 Test Item Value Reference Range Interpretation Comments WHITE BLOOD CELL (test code = 11.3 K/mm3 4.5-12.5 N WBC) RED BLOOD CELL (test code = 4.58 mill/mm3 3.7-5.2 N RBC) HEMOGLOBIN (test code = HGB) 13.8 gram/dL 11.5-15.5 N HEMATOCRIT (test code = HCT) 42.8 % 36.0-46.0 N MEAN CELL VOLUME (test code = 93.4 fL 80-98 N MCV) MEAN CELL HGB (test code = MCH) 30.1 picogram 27.0-33.0 N MEAN CELL HGB CONCETRATION 32.2 gram/dL 33.0-36.0 L (test code = MCHC) RED CELL DISTRIBUTION WIDTH 13.0 % 11.6-16.2 N (test code = RDW) PLATELET COUNT (test code = 228 K/mm3 150-450 N PLT) MEAN PLATELET VOLUME (test code 10.9 fL 6.7-11.0 N = MPV)
[2021-04-28 13:47] LABS: Absolute Lymphocytes (CBC) 2.3 K/uL (0.7-4.9); Basophils % 0.9 % (0-1.3); Hematocrit 44.6 % (36.0-45.0); Lymphocytes % 24.4 % (15.3-44.8); MPV 9.7 fL (7.6-11.3); RBC Red Blood Cell Count 4.72 M/uL (3.86-4.86)
[2021-04-28 13:55] LABS: Protime INR 0.94
[2021-04-28 14:05] LABS: ALT/SGPT 90 U/L (12-78); AST/SGOT 56 U/L (15-37); Albumin 3.6 g/dL (3.4-5.0); Alkaline Phosphatase 86 U/L (45-117); BUN Blood Urea Nitrogen 8 mg/dL (7-18); Bicarbonate 26 mmol/L (21-32); Bilirubin Direct < 0.1 mg/dL (0-0.2); Bilirubin Total 0.3 mg/dL (0.2-1.0); Glucose Level 86 mg/dL (74-106); Potassium 4.4 mmol/L (3.5-5.1); Protein, Total 7.8 g/dL (6.4-8.2); Sodium Level 139 mmol/L (136-145)
[2021-04-28 14:38] LABS: Urine Blood Negative (Negative); Urine Glucose Negative (Negative); Urine Protein Negative (Negative); Urine pH 6.5 (5.0-7.0)
[2021-04-28 14:56] LABS: Barbiturates NEGATIVE (NEGATIVE); Benzodiazepines NEGATIVE (NEGATIVE); Cocaine NEGATIVE (NEGATIVE); METHAMPHETAM NEGATIVE (NEGATIVE); Methadone NEGATIVE (NEGATIVE); Opiates NEGATIVE (NEGATIVE); Phencyclidine NEGATIVE (NEGATIVE); THC Cannibis NEGATIVE (NEGATIVE)
--- NOTE | 2021-04-28 15:10 | EDPHYS ---
Physician Documentation [facility] Name: Ailin Layne Age: 40 yrs Sex: Female : 1980 Arrival Date: 04/28/2021 Time: 12:53 Bed 16 Private MD: ED Physician Mukesh Davalos HPI: 04/28 13:30 This 40 yrs old Female presents to ER via Ambulatory with complaints of cp Suicidal Ideation. 13:30 The patient presents to the emergency department with psychosis, has experienced cp auditory hallucinations, telling her she is unworthy, suicide ideation, but the patient has no formulated plan. 13:30 Onset: The symptoms/episode began/occurred 4 day(s) ago. Past psychiatric history: cp Prior diagnosis: bipolar disorder, Psychiatric medications include: [place], [place], the patient has a previous inpatient psychiatric history, last year, at [facility]. Historical: - Allergies: 13:13 Seroquel; ll1 13:13 Latuda; ll1 - PMHx: 13:13 Bipolar disorder; Hypertension; no meds yet; ll1 - PSHx: 13:13 Tubal ligation; ll1 - Immunization history:: Flu vaccine is not up to date. - Social history:: Smoking status: Patient reports the use of cigarette tobacco products, smokes one-half pack cigarettes per day. ROS: 13:35 Psych: Positive for auditory hallucinations, suicidal ideation, Negative for visual cp hallucinations, homicidal ideation, suicide gesture. 13:35 Eyes: Negative for injury, pain, redness, and discharge. cp 13:35 Constitutional: Negative for fever, poor PO intake. 13:35 Cardiovascular: Negative for chest pain, edema, palpitations. 13:35 Respiratory: Negative for cough, shortness of breath, wheezing. 13:35 Abdomen/GI: Negative for abdominal pain, nausea, vomiting, and diarrhea. 13:35 Neuro: Negative for altered mental status, headache, syncope, weakness. 13:35 All other systems are negative. Exam: 13:33 ECG was reviewed by the Attending Physician. cp 13:40 Constitutional: The patient appears in no acute distress, alert, awake, cp non-diaphoretic, non-toxic, well developed, well nourished, obese. 13:40 Head/Face: Normocephalic, atraumatic. cp 13:40 Eyes: Periorbital structures: appear normal, Conjunctiva: normal, no exudate, no injection, Sclera: no appreciated abnormality, Lids and lashes: appear normal, bilaterally. 13:40 ENT: External ear(s): are unremarkable, Nose: is normal, Mouth: Lips: moist, Posterior pharynx: Airway: no evidence of obstruction, patent. 13:40 Chest/axilla: Inspection: normal, Palpation: is normal, no crepitus, no tenderness. 13:40 Cardiovascular: Rate: normal, Rhythm: regular. 13:40 Respiratory: the patient does not display signs of respiratory distress, Respirations: normal, no use of accessory muscles, no retractions, labored breathing, is not present, Breath sounds: are clear throughout, no decreased breath sounds, no stridor, no wheezing. 13:40 Abdomen/GI: Exam negative for discomfort, distension, guarding, Inspection: abdomen appears normal. 13:40 Back: pain, is absent, ROM is normal. 13:40 Neuro: Orientation: to person, place \T\ time. Mentation: is normal. 13:40 Psych: Behavior/mood is pleasant, cooperative, Affect is calm, Judgement / Insight is normal. Vital Signs: 13:08 BP 157 / 78; Pulse 95; Resp 17; Temp 98.3; Pulse Ox 95% ; Height 5 ft. 5 in. (165.10 ll1 cm); Pain 5/10; 15:30 BP 128 / 74; Pulse 72; Resp 16; Temp 97.4(TE); Pulse Ox 100% on R/A; Pain 0/10; hb MDM: 13:19 Patient medically screened. 15:10 Data reviewed: vital signs, nurses notes, lab test result(s), EKG. 15:10 Test interpretation: by ED physician or midlevel provider: ECG. 16:00 Physician consultation: was contacted at 16:00, regarding regarding transfer, to a psychiatric hospital. patient's condition, accepting physician will be DR Morgan. 04/28 13:19 Order name: Acetaminophen 04/28 13:19 Order name: Basic Metabolic Panel 04/28 13:19 Order name: CBC with Diff; Complete Time: 14:18 04/28 14:19 Interpretation: Reviewed. 04/28 13:19 Order name: ETOH Level; Complete Time: 14:18 cp 04/28 14:20 Interpretation: Reviewed. cp 04/28 13:19 Order name: Hepatic Function; Complete Time: 14:18 cp 04/28 14:19 Interpretation: Normal except: AST 56; ALT 90; GLOB 4.2; A/G 0.9. cp 04/28 13:19 Order name: PT-INR; Complete Time: 14:18 cp 04/28 13:19 Order name: Ptt, Activated; Complete Time: 14:18 cp 04/28 13:19 Order name: Salicylate; Complete Time: 14:18 cp 04/28 13:19 Order name: Urine Drug Screen; Complete Time: 15:02 cp 04/28 13:20 Order name: Acetaminophen Level; Complete Time: 14:18 EDMS 04/28 13:20 Order name: Basic Metabolic Panel; Complete Time: 14:18 EDMS 04/28 14:19 Interpretation: Normal except: CL 108. cp 04/28 13:46 Order name: [place]; Complete Time: 15:02 04/28 15:02 Interpretation: Reviewed. 04/28 14:38 Order name: Urine Dipstick-Ancillary; Complete Time: 15:02 EDMS 04/28 13:19 Order name: Urine Test (obtain specimen); Complete Time: 16:02 04/28 13:19 Order name: Suicide Precautions; Complete Time: 13:33 cp 04/28 13:19 Order name: EKG; Complete Time: 13:20 cp 04/28 13:19 Order name: EKG - Nurse/Tech; Complete Time: 13:33 cp 04/28 13:19 Order name: IV Saline Lock; Complete Time: 13:33 04/28 13:19 Order name: Labs collected and sent; Complete Time: 13:33 cp 04/28 13:19 Order name: Suicide Screening ([place]); Complete Time: 13:33 cp 04/28 13:19 Order name: Urine Dipstick-Ancillary (obtain specimen); Complete Time: 14:04 cp 04/28 14:39 Order name: Urine --Ancillary (enter results); Complete Time: 15:02 04/28 15:03 Order name: SARS-COV-2 RT PCR; Complete Time: 15:52 EDMS EC:33 Rate is 88 beats/min. Rhythm is regular. [place] interval is normal. QRS interval is normal. cp QT interval is normal. T waves are Inverted in leads III, aVR. Interpreted by me. Reviewed by me. Administered Medications: No medications were administered Disposition: 04/29 09:45 Co-signature as Attending Physician, Mukesh Davalos MD I agree with the assessment and [facility] plan of care. Disposition: 04/28/21 15:09 Transfer ordered to Psych Facility. Diagnosis are Suicidal ideations, Hallucinations, unspecified. - Reason for transfer: Higher level of care. - Accepting physician is Dr. Morgan from [facility]. - Condition is Stable. - Problem is an acute exacerbation. - Symptoms are unchanged. Signatures: Dispatcher [employer] EDAR Mukesh Davalos MD MD kdr Portillo Rodriguez PA PA cp Zaira Varela, RADHA RN Yvonne Card Lynsay, RN RN ll1 Corrections: (The following items were deleted from the chart) 04/28 14:11 13:31 CORONAVIRUS+MR.LAB.BRZ ordered. [facility] 16:07 15:09 04/28/2021 15:09 Transfer ordered to Psych Facility. Diagnosis is Suicidal eb ideations; Hallucinations, unspecified. Reason for transfer: Higher level of care. Accepting physician is Doctor. Condition is Stable. Problem is an acute exacerbation. Symptoms are unchanged. cp 17:01 16:07 04/28/2021 15:09 Transfer ordered to Psych Facility. Diagnosis is Suicidal hb ideations; Hallucinations, unspecified. Reason for transfer: Higher level of care. Accepting physician is Dr. Morgan from [facility]. Condition is Stable. Problem is an acute exacerbation. Symptoms are unchanged. eb
--- NOTE | 2021-04-28 15:10 | ER ---
Nurse's Notes [facility] Name: Ailin Layne Age: 40 yrs Sex: Female : 1980 Arrival Date: 04/28/2021 Time: 12:53 Bed 16 Private MD: Diagnosis: Suicidal ideations;Hallucinations, unspecified Presentation: 04/28 13:08 Chief complaint: Patient states: Generalized suicidal thoughts since 04/24/21. No ll1 specific plan. Missed her Invaga shot 04/25/21. Takes her lithium and hydroxyzine as prescribed. Coronavirus screen: Client denies travel out of the [place] in the last 14 days. At this time, the client does not indicate any symptoms associated with coronavirus-19. Ebola Screen: Patient denies travel to an Ebola-affected area in the 21 days before illness onset. Initial Sepsis Screen: Does the patient meet any 2 criteria? HR > 90 bpm. No. Patient's initial sepsis screen is negative. Does the patient have a suspected source of infection? No. Patient's initial sepsis screen is negative. Risk Assessment: Do you want to hurt yourself or someone else? Patient reports desire/thoughts of hurting themselves or someone else. Provider notified. Onset of symptoms was April 24, 2021. 13:08 Method Of Arrival: Ambulatory ll1 13:08 Acuity: THAIS 2 hb Historical: - Allergies: 13:13 Seroquel; ll1 13:13 Latuda; ll1 - PMHx: 13:13 Bipolar disorder; Hypertension; no meds yet; ll1 - PSHx: 13:13 Tubal ligation; ll1 - Immunization history:: Flu vaccine is not up to date. - Social history:: Smoking status: Patient reports the use of cigarette tobacco products, smokes one-half pack cigarettes per day. Screenin:38 Abuse screen: Denies threats or abuse. Denies injuries from another. Nutritional hb screening: No deficits noted. Tuberculosis screening: No symptoms or risk factors identified. Fall Risk. Assessment: 13:35 Reassessment: See paper chart for SI screen and documentation. hb 13:38 General: Appears in no apparent distress. Behavior is calm, cooperative. Pain: Denies hb pain. Neuro: Level of Consciousness is awake, alert, obeys commands, Oriented to person, place, time, situation. Cardiovascular: Patient's skin is warm and dry. Respiratory: Respiratory effort is even, unlabored, Respiratory pattern is regular, symmetrical. GI: No signs and/or symptoms were reported involving the gastrointestinal system. : No signs and/or symptoms were reported regarding the genitourinary system. EENT: No signs and/or symptoms were reported regarding the EENT system. Derm: Skin is pink, warm \T\ dry. Musculoskeletal:. 13:38 Musculoskeletal: No signs and/or symptoms reported regarding the musculoskeletal system.hb 14:30 Reassessment: Patient appears in no apparent distress at this time. Patient and/or hb family updated on plan of care and expected duration. Pain level reassessed. Patient is alert, oriented x 3, equal unlabored respirations, skin warm/dry/pink. 15:30 Reassessment: Patient appears in no apparent distress at this time. Patient and/or hb family updated on plan of care and expected duration. Pain level reassessed. Patient is alert, oriented x 3, equal unlabored respirations, skin warm/dry/pink. 16:30 Reassessment: Patient appears in no apparent distress at this time. Patient and/or hb family updated on plan of care and expected duration. Pain level reassessed. Patient is alert, oriented x 3, equal unlabored respirations, skin warm/dry/pink. Vital Signs: 13:08 BP 157 / 78; Pulse 95; Resp 17; Temp 98.3; Pulse Ox 95% ; Height 5 ft. 5 in. (165.10 ll1 cm); Pain 5/10; 15:30 BP 128 / 74; Pulse 72; Resp 16; Temp 97.4(TE); Pulse Ox 100% on R/A; Pain 0/10; hb ED Course: 12:53 Patient arrived in ED. as 13:12 Triage completed. ll1 13:12 Arm band placed on Patient placed in an exam room, on a stretcher. ll1 13:16 Zaira Varela RN is Primary Nurse. hb 13:17 Portillo Rodriguez PA is PHCP. cp 13:17 Mukesh Davalos MD is Attending Physician. cp 13:32 Inserted saline lock: 20 gauge in left antecubital area, using aseptic technique. Blood hb collected. 13:39 Patient has correct armband on for positive identification. Placed in gown. Bed in low hb position. 15:06 faxed patient records in attempt to find placement to [facility] and [facility]. 15:36 connected Mara Lieberman from [facility] with Zaira Lieberman for patient transfer eb consultation. 15:39 administrative approval given by Ivonne Beebe from [facility]/ Mara will eb call back with accepting doctor information. 15:50 Dr. Hicks the psychiatrist transit operations supervisor for [facility] connected with Portillo Lares for eb patient transfer consultation. 16:02 Acetaminophen Sent. hb 16:02 Basic Metabolic Panel Sent. hb Administered Medications: No medications were administered Outcome: 15:09 ER care complete, transfer ordered by . [place] 17:01 Patient left the ED. hb Signatures: Vanessa Ma Corey, PA PA cp Zaira Varela, RN RN hb Yvonne Celis Lynsay, RN RN ll1 Corrections: (The following items were deleted from the chart) 13:14 13:08 Acuity: THAIS 3 ll1 hb 13:14 13:08 Acuity: THAIS 2 hb hb
[2021-04-28] MEDS ORDERED: NICOTINE 21 MG/PAT TD ONE (17:03)
[2021-04-28 17:14] VITALS: BP 128/74; TEMP 97.4; O2SAT 100
--- NOTE | 2021-04-29 07:48 | EKG ---
Test Date: 2021-04-28 Test Time: 13:26:11 Bin Worker: SERENE MEASUREMENT RESULTS: Intervals: Rate: 88 IL: 140 QRSD: 82 QT: 350 QTc: 423 [place]: P: 48 IL: 140 QRS: 18 T: 41 INTERPRETIVE STATEMENTS: Normal sinus rhythm Cannot rule out Anterior infarct, age undetermined Abnormal ECG No previous ECG available for comparison Electronically Signed On 04-29-21 07:46:27 CDT by Dl Babcock
== END 2021-04-28 17:01 ==
LOC: ER 12:49
DX: R45.851 Suicidal ideations (principal); R44.0 Auditory hallucinations; F31.9 Bipolar disorder, unspecified; F17.210 Nicotine dependence, cigarettes, uncomplicated; Z20.822 Contact with and (suspected) exposure to COVID-19; Z88.8 Allergy status to other drugs, medicaments and biological substances
CPT/HCPCS: 93005; 85025; 80048; 36415; 80320; 80329 ×2; 81025; 85610; 80178; 80076; 80307 ×8; 85730; 81003; 99283; U0003

== ENCOUNTER 2021-07-24 09:52 | Emergency (ER) | payer OTHER ==
--- NOTE | 2021-07-24 11:55 | ER ---
Nurse's Notes [facility] Name: Ailin Layne Age: 40 yrs Sex: Female : 1980 Arrival Date: 07/24/2021 Time: 09:53 Bed Waiting Private MD: Diagnosis: Presentation: 07/24 10:32 Chief complaint: Patient states: "I don't know what's wrong with me." pt reports SI, ss denies HI. Does not have a plan. Coronavirus screen: Client denies travel out of the [place] in the last 14 days. Ebola Screen: Patient denies exposure to infectious person. Patient denies travel to an Ebola-affected area in the 21 days before illness onset. Initial Sepsis Screen: Does the patient meet any 2 criteria? No. Patient's initial sepsis screen is negative. Does the patient have a suspected source of infection? No. Patient's initial sepsis screen is negative. Risk Assessment: Do you want to hurt yourself or someone else? Patient reports no desire to harm self or others. Onset of symptoms is unknown. 10:32 Method Of Arrival: Ambulatory ss 10:32 Acuity: THAIS 2 ss Historical: - Allergies: 10:35 Latuda; ss 10:35 Seroquel; ss - PMHx: 10:35 Bipolar disorder; Hypertension; no meds yet; ss - Immunization history:: Client reports receiving the 2nd dose of the Covid vaccine. - Social history:: Smoking status: Patient reports the use of cigarette tobacco products, smokes one-half pack cigarettes per day. Assessment: 11:00 Reassessment: Called from [facility]. Unable to locate patient. ss 11:30 Reassessment: called form [facility]. Unable to locate patient. Security/ screener at front ss door stated they saw patient leave. Vital Signs: 10:32 BP 138 / 78; Pulse 104; Resp 16; Temp 97.0(TE); Pulse Ox 98% on R/A; ss ED Course: 09:53 Patient arrived in ED. ds1 10:35 Triage completed. ss 10:35 Arm band placed on right wrist. ss 10:36 Alondra Nolan FNP-C is PHCP. kb 10:36 Mark Hannah MD is Attending Physician. kb 11:54 No provider procedures requiring assistance completed. Patient did not have IV access ss during this emergency room visit. Administered Medications: No medications were administered Outcome: 11:54 Eloped from waiting room. ss 11:55 Patient left the ED. ss Signatures: Alondra Nolan FNP-C FNP-Ckb [place], Demi ds1 Yajaira Pope, RN RN ss
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
[2021-07-24 11:59] VITALS: BP 138/78; TEMP 97; O2SAT 98
== END 2021-07-24 11:55 | disposition left against medical advice (07) ==
LOC: ER 09:52
DX: Z20.822 Contact with and (suspected) exposure to COVID-19 (principal); Z53.21 Procedure and treatment not carried out due to patient leaving prior to being seen by health care provider
CPT/HCPCS: 99281

== ENCOUNTER 2021-07-25 05:38 | Emergency (ER) | payer OTHER ==
[2021-07-25 07:54] LABS: BUN Blood Urea Nitrogen 13 mg/dL (7-18); Bicarbonate 29 mmol/L (21-32); Glucose Level 101 mg/dL (74-106); Potassium 3.7 mmol/L (3.5-5.1); Sodium Level 141 mmol/L (136-145)
[2021-07-25] MEDS ORDERED: NA CHLORIDE 0.9% 1,000 ML ONE (07:54)
[2021-07-25 08:37] LABS: Urine Blood Trace-intact (Negative); Urine Glucose Negative (Negative); Urine Protein Negative (Negative)
[2021-07-25 09:36] LABS: Urine Bacteria <20 /HPF (<20); Urine RBC <5 /HPF (NONE SEEN)
--- NOTE | 2021-07-25 10:01 | EDPHYS ---
Physician Documentation [facility] Name: Ailin Layne Age: 40 yrs Sex: Female : 1980 Arrival Date: 07/25/2021 Time: 05:40 Bed 4 Private MD: ED Physician Mark Hannah HPI: 07/25 07:18 This 40 yrs old Female presents to ER via EMS with complaints of Dizziness, rn pain All Over. 07:18 The patient presents with dizziness, feeling faint, generalized weakness, rn lightheadedness. Onset: The symptoms/episode began/occurred today. Modifying factors: The symptoms are alleviated by nothing, the symptoms are aggravated by standing up. Associated signs and symptoms: Pertinent negatives: abdominal pain, chest pain, , seizure, syncope, vomiting. Severity of symptoms: At their worst the symptoms were moderate in the emergency department the symptoms are unchanged. The patient has not experienced similar symptoms in the past. The patient has not recently seen a physician. Patient reports dizziness and lightheadedness. Police were called to the scene for a patient who was asleep on stairwell. Patient does not recall what happened. Denies syncopal episode. Denies chest pain/abdominal pain/vomiting/diarrhea. Patient states feels like got sunburned. Denies overdose or drug use. Reports feels very thirsty and lightheaded when stands.. Historical: - Allergies: 05:52 Latuda; em 05:52 Seroquel; em - PMHx: 05:52 Bipolar disorder; Hypertension; no meds yet; em - PSHx: 05:52 section; em - Immunization history:: Client reports receiving the 1st dose of the Covid vaccine. - Social history:: Smoking status: Patient/guardian denies using tobacco. - Family history:: not pertinent. - Hospitalizations: : No recent hospitalization is reported. ROS: 07:18 Constitutional: Negative for fever, chills, and weight loss, Eyes: Negative for injury, rn pain, redness, and discharge, ENT: Negative for injury, pain, and discharge, Neck: Negative for injury, pain, and swelling, Cardiovascular: Negative for chest pain, palpitations, and edema, Respiratory: Negative for shortness of breath, cough, wheezing, and pleuritic chest pain, Abdomen/GI: Negative for abdominal pain, nausea, vomiting, diarrhea, and constipation, Back: Negative for injury and pain, : Negative for injury, bleeding, discharge, and swelling, MS/Extremity: Negative for injury and deformity, Skin: Negative for injury, rash, and discoloration, Neuro: Negative for headache, numbness, tingling, and seizure. 07:18 All other systems are negative. Exam: 07:18 Constitutional: This is a well developed, well nourished patient who is awake, alert, rn and in no acute distress. Appears sunburned Head/Face: Normocephalic, atraumatic. Eyes: Periorbital areas with no swelling, redness, or edema. No nystagmus Cardiovascular: Regular rate and rhythm. No pulse deficits. Respiratory: Speaking full sentences, unlabored. No increased work of breathing, no retractions or nasal flaring. Abdomen/GI: Soft, non-tender Skin: Warm, dry, sunburn skin face neck and arms. MS/ Extremity: Pulses equal, no cyanosis. Equal circumference Neuro: Awake and alert, GCS 15, oriented to person, place, and situation. Cranial nerves II-XII grossly intact. Motor strength 4/5 in all extremities. Sensory grossly intact. 09:52 ECG was reviewed by the Attending Physician. rn Vital Signs: 05:49 BP 106 / 62; Pulse 88; Resp 18; Temp 98.5; Pulse Ox 96% ; Weight 81.65 kg; Height 5 ft. em 6 in. (167.64 cm); Pain 8/10; 05:49 Body Mass Index 29.05 (81.65 kg, 167.64 cm) em MDM: 07:01 Patient medically screened. rn 10:00 Differential diagnosis: generalized weakness, hypovolemia, idiopathic dizziness, rn Urinary tract infection, heat exhaustion. Data reviewed: vital signs, nurses notes, lab test result(s), EKG, and as a result, I will discharge patient. Counseling: I had a detailed discussion with the patient and/or guardian regarding: the historical points, exam findings, and any diagnostic results supporting the discharge/admit diagnosis, lab results, the need for outpatient follow up, to return to the emergency department if symptoms worsen or persist or if there are any questions or concerns that arise at home. Response to treatment: the patient's symptoms have markedly improved after treatment, and as a result, I will discharge patient. Special discussion: I discussed with the patient/guardian in detail that at this point there is no indication for admission to the hospital. It is understood, however, that if the symptoms persist or worsen the patient needs to return immediately for re-evaluation. 07/25 07:10 Order name: BMP rn 07/25 07:10 Order name: Urine Microscopic Only rn 07/25 07:11 Order name: Basic Metabolic Panel; Complete Time: 08:42 EDMS 07/25 07:11 Order name: Urine Microscopic Only; Complete Time: 09:59 EDMS 07/25 08:37 Order name: Urine Dipstick-Ancillary; Complete Time: 08:42 EDMS 07/25 09:39 Order name: Urine Culture EDMS 07/25 07:10 Order name: IV Start; Complete Time: 07:32 rn 07/25 07:10 Order name: EKG; Complete Time: 07:11 rn 07/25 07:10 Order name: EKG - Nurse/Tech; Complete Time: 07:45 rn 07/25 07:10 Order name: Urine Dipstick-Ancillary (obtain specimen); Complete Time: 08:37 rn EC:52 Rate is 77 beats/min. Rhythm is regular. QRS [place] is Normal. NH interval is normal. QRS rn interval is normal. QT interval is prolonged at 482 msec. No Q waves. T waves are Normal. No ST changes noted. Clinical impression: NSR, prolonged QT. Interpreted by me. Reviewed by me. Administered Medications: 07:32 Drug: NS 0.9% 1000 ml Route: IV; Rate: 1000 ml; Site: right antecubital; iw 09:00 Follow up: IV Status: Completed infusion iw Disposition Summary: 07/25/21 10:00 Discharge Ordered Location: Home rn Problem: new rn Symptoms: have improved rn Condition: Stable rn Diagnosis - Dehydration rn - Heat exhaustion, unspecified rn - UTI/ Urinary tract infection, site not specified rn Followup: rn - With: Private Physician - When: As needed - Reason: Recheck today's complaints, Re-evaluation by your physician Discharge Instructions: - Discharge Summary Sheet rn - Dehydration, Adult rn - Urinary Tract Infection, Adult rn - Heat Exhaustion rn Forms: - Medication Reconciliation Form rn - Thank You Letter rn - 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
--- NOTE | 2021-07-25 10:01 | ER ---
Nurse's Notes [facility] Name: Ailin Layne Age: 40 yrs Sex: Female : 1980 Arrival Date: 07/25/2021 Time: 05:40 Bed 4 Private MD: Diagnosis: Dehydration;Heat exhaustion, unspecified;UTI/ Urinary tract infection, site not specified Presentation: 07/25 05:49 Chief complaint: EMS states: called out for someone sleeping on a stairwell, PD was em notified, [facility] reports pt reported pain all over and wanted to come to the hospital, pt reports pain in back and in arms, pt reports having a sun burn. Coronavirus screen: Client denies travel out of the [place] in the last 14 days. Ebola Screen: Patient negative for fever greater than or equal to 101.5 degrees Fahrenheit, and additional compatible Ebola Virus Disease symptoms Patient denies exposure to infectious person. Patient denies travel to an Ebola-affected area in the 21 days before illness onset. No symptoms or risks identified at this time. Initial Sepsis Screen: Does the patient meet any 2 criteria? No. Patient's initial sepsis screen is negative. Does the patient have a suspected source of infection? No. Patient's initial sepsis screen is negative. Risk Assessment: Do you want to hurt yourself or someone else? Patient reports no desire to harm self or others. Onset of symptoms was July 25, 2021. 05:49 Method Of Arrival: EMS: [facility] em 05:49 Acuity: THAIS 3 em Historical: - Allergies: 05:52 Latuda; em 05:52 Seroquel; em - PMHx: 05:52 Bipolar disorder; Hypertension; no meds yet; em - PSHx: 05:52 section; em - Immunization history:: Client reports receiving the 1st dose of the Covid vaccine. - Social history:: Smoking status: Patient/guardian denies using tobacco. - Family history:: not pertinent. - Hospitalizations: : No recent hospitalization is reported. Screenin:33 Abuse screen: Denies threats or abuse. Denies injuries from another. Nutritional iw screening: No deficits noted. Tuberculosis screening: No symptoms or risk factors identified. Fall Risk IV access (20 points). Assessment: 07:32 General: Appears uncomfortable, Behavior is cooperative. Pain: Complains of pain in iw back. Neuro: Level of Consciousness is awake, alert, obeys commands, Oriented to person, place, time, situation, Moves all extremities. Reports dizziness. Cardiovascular: Patient's skin is warm and dry. Respiratory: Respiratory effort is even, unlabored, Respiratory pattern is regular. Derm: sunburn throughout face, arms, legs. Musculoskeletal: Range of motion: intact in all extremities. Vital Signs: 05:49 BP 106 / 62; Pulse 88; Resp 18; Temp 98.5; Pulse Ox 96% ; Weight 81.65 kg; Height 5 ft. em 6 in. (167.64 cm); Pain 8/10; 05:49 Body Mass Index 29.05 (81.65 kg, 167.64 cm) em ED Course: 05:40 Patient arrived in ED. 05:52 Triage completed. em 05:52 Arm band placed on. em 07:01 Mark Hannah MD is Attending Physician. rn 07:27 Sakshi Egan RN is Primary Nurse. iw 07:44 EKG done, by ED staff, reviewed by Mark Hannah MD. sv 08:15 BMP Sent. sv 08:50 Urine Microscopic Only Sent. 5 Administered Medications: 07:32 Drug: NS 0.9% 1000 ml Route: IV; Rate: 1000 ml; Site: right antecubital; iw 09:00 Follow up: IV Status: Completed infusion iw Outcome: 10:00 Discharge ordered by . rn 10:44 Patient left the ED. Signatures: Cristina Palma RN RN Snia Lomeli RN RN Sakshi Egan, RADHA RN Mark Hannah MD MD rn Martinez, Maria Yvonne Dee
[2021-07-25 10:49] VITALS: BP 106/62; TEMP 98.5; O2SAT 96
--- NOTE | 2021-07-26 15:41 | EKG ---
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
== END 2021-07-25 10:44 | disposition home or self-care (01) ==
LOC: ER 05:38
DX: E86.0 Dehydration (principal); N39.0 Urinary tract infection, site not specified; T67.5XXA Heat exhaustion, unspecified, initial encounter; I10 Essential (primary) hypertension; Z88.8 Allergy status to other drugs, medicaments and biological substances
CPT/HCPCS: 93005; 87088; 87086; 80048; 36415; 87077; 87186; 96360; 99284; J7030; 81003; 81015

== ENCOUNTER 2021-07-26 03:45 | Emergency (ER) | payer OTHER ==
--- NOTE | 2021-07-26 09:52 | EDPHYS ---
Physician Documentation [facility] Name: Ailin Layne Age: 40 yrs Sex: Female : 1980 Arrival Date: 07/26/2021 Time: 03:49 Bed 12 Private MD: Portillo Caba HPI: 07/26 09:28 This 40 yrs old Female presents to ER via Ambulatory with complaints of eliezer Dizziness, Doesn't Feel Right. 09:28 The patient presents with generalized weakness. Onset: The symptoms/episode eliezer began/occurred 2 day(s) ago. Context: occurred at home. Modifying factors: The symptoms are alleviated by nothing, the symptoms are aggravated by nothing. Associated signs and symptoms: The patient has no apparent associated signs or symptoms. Severity of symptoms: At their worst the symptoms were. Patient's baseline: Neuro: alert and fully oriented. The patient has not experienced similar symptoms in the past. 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 - Social history:: Smoking status: Patient reports the use of cigarette tobacco products, denies chronic smoking, but will smoke occasionally. - Family history:: not pertinent. ROS: 09:28 Constitutional: Negative for fever, chills, and weight loss, Eyes: Negative for injury, eliezer pain, redness, and discharge, ENT: Negative for injury, pain, and discharge, Neck: Negative for injury, pain, and swelling, Cardiovascular: Negative for chest pain, palpitations, and edema, Respiratory: Negative for shortness of breath, cough, wheezing, and pleuritic chest pain, Abdomen/GI: Negative for abdominal pain, nausea, vomiting, diarrhea, and constipation, Back: Negative for injury and pain, : Negative for injury, bleeding, discharge, and swelling, MS/Extremity: Negative for injury and deformity, Skin: Negative for injury, rash, and discoloration, Psych: Negative for depression, anxiety, suicide ideation, homicidal ideation, and hallucinations, Allergy/Immunology: Negative for hives, rash, and allergies, Endocrine: Negative for neck swelling, polydipsia, polyuria, polyphagia, and marked weight changes, Hematologic/Lymphatic: Negative for swollen nodes, abnormal bleeding, and unusual bruising. : Neuro: Positive for weakness. Exam: : Constitutional: This is a well developed, well nourished patient who is awake, alert, eliezer and in no acute distress. Head/Face: Normocephalic, atraumatic. Eyes: Pupils equal round and reactive to light, extra-ocular motions intact. Lids and lashes normal. Conjunctiva and sclera are non-icteric and not injected. Cornea within normal limits. Periorbital areas with no swelling, redness, or edema. ENT: Nares patent. No nasal discharge, no septal abnormalities noted. Tympanic membranes are normal and external auditory canals are clear. Oropharynx with no redness, swelling, or masses, exudates, or evidence of obstruction, uvula midline. Mucous membranes moist. Neck: Trachea midline, no thyromegaly or masses palpated, and no cervical lymphadenopathy. Supple, full range of motion without nuchal rigidity, or vertebral point tenderness. No Meningismus. Chest/axilla: Normal chest wall appearance and motion. Nontender with no deformity. No lesions are appreciated. Cardiovascular: Regular rate and rhythm with a normal S1 and S2. No gallops, murmurs, or rubs. Normal PMI, no JVD. No pulse deficits. Respiratory: Lungs have equal breath sounds bilaterally, clear to auscultation and percussion. No rales, rhonchi or wheezes noted. No increased work of breathing, no retractions or nasal flaring. Abdomen/GI: Soft, non-tender, with normal bowel sounds. No distension or tympany. No guarding or rebound. No evidence of tenderness throughout. Back: No spinal tenderness. No costovertebral tenderness. Full range of motion. Skin: Warm, dry with normal turgor. Normal color with no rashes, no lesions, and no evidence of cellulitis. MS/ Extremity: Pulses equal, no cyanosis. Neurovascular intact. Full, normal range of motion. Neuro: Awake and alert, GCS 15, oriented to person, place, time, and situation. Cranial nerves II-XII grossly intact. Motor strength 5/5 in all extremities. Sensory grossly intact. Cerebellar exam normal. Normal gait. Psych: Awake, alert, with orientation to person, place and time. Behavior, mood, and affect are within normal limits. Vital Signs: 05:14 BP 127 / 86; Pulse 82; Resp 16 S; Temp 98.6(O); Pulse Ox 99% on R/A; Weight 81.65 kg bb (R); Height 5 ft. 6 in. (167.64 cm) (R); Pain 0/10; 05:14 Body Mass Index 29.05 (81.65 kg, 167.64 cm) bb MDM: 08:12 Patient medically screened. eliezer 09:42 Differential diagnosis: generalized weakness, hypovolemia, idiopathic dizziness, eliezer near-syncope. Data reviewed: vital signs, nurses notes, lab test result(s). Data interpreted: frame hand: rate is 82 beats/min, rhythm is. 09:53 Counseling: I had a detailed discussion with the patient and/or guardian regarding: the eliezer historical points, exam findings, and any diagnostic results supporting the discharge/admit diagnosis, lab results, the need for outpatient follow up, for definitive care, a family practitioner, a psychiatrist. 07/26 09:20 Order name: Diet Regular; Complete Time: 09:21 bd Administered Medications: 09:53 Drug: Bactrim (trimethoprim-sulfamethoxazole) (160 mg-800 mg (DS) 1 tablet Route: PO; ss 10:00 Follow up: Response: Medication administered at discharge.; Refused vitals stated " I ch5 am fine" Disposition Summary: 07/26/21 09:52 Discharge Ordered Location: Home eliezer Problem: new eliezer Symptoms: have improved eliezer Condition: Stable eliezer Diagnosis - Weakness eliezer - Sunburn of first degree eliezer - UTI/ Urinary tract infection, site not specified eliezer Followup: eliezer - With: Private Physician - When: 2 - 3 days - Reason: Recheck today's complaints, Re-evaluation by your physician Discharge Instructions: - Discharge Summary Sheet eliezer - Sunburn, Adult eliezer - Urinary Tract Infection, Adult eliezer - Weakness eliezer - Urinary Tract Infection, Adult, [id number] eliezer - Weakness, [id number] eliezer Forms: - Medication Reconciliation Form eliezer - Thank You Letter eliezer - Antibiotic Education eliezer - Prescription Opioid Use eliezer Prescriptions: - Bactrim DS 800-160 mg Oral Tablet - take 1 tablet by ORAL route every 12 hours for 7 days; 14 tablet; Refills: 0, eliezer Product Selection Permitted Signatures: Portillo Rincon MD MD cha Ballard, Brenda RN RN bb Yajaira Pope RN RN Juan Jose Santa RN ch5
--- NOTE | 2021-07-26 09:52 | ER ---
Nurse's Notes [facility] Name: Ailin Layne Age: 40 yrs Sex: Female : 1980 Arrival Date: 07/26/2021 Time: 03:49 Bed 12 Private MD: Diagnosis: Weakness;Sunburn of first degree;UTI/ Urinary tract infection, site not specified Presentation: 07/26 05:14 Chief complaint: Patient states: first she states she doesn't know why she is here, bb then she states she wants the rest of the fluids which were started yesterday, then she c/o difficulty walking since yesterday. Coronavirus screen: At this time, the client does not indicate any symptoms associated with coronavirus-19. Ebola Screen: No symptoms or risks identified at this time. Initial Sepsis Screen: Does the patient meet any 2 criteria? No. Patient's initial sepsis screen is negative. Does the patient have a suspected source of infection? No. Patient's initial sepsis screen is negative. Risk Assessment: Do you want to hurt yourself or someone else? Patient reports no desire to harm self or others. Onset of symptoms is unknown. 05:14 Method Of Arrival: Ambulatory bb 05:14 Acuity: THAIS 3 bb Triage Assessment: 05:15 General: Appears in no apparent distress. obese, Behavior is calm, cooperative. Pain: bb Denies pain. Neuro: Level of Consciousness is awake, alert, obeys commands, Oriented to person, place, situation. Cardiovascular: Capillary refill < 3 seconds Patient's skin is warm and dry. Respiratory: Respiratory effort is even, unlabored, Respiratory pattern is regular. GI: No signs and/or symptoms were reported involving the gastrointestinal system. Derm: Skin is pink, warm \\T\\ dry. Musculoskeletal: Circulation, motion, and sensation intact. 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 - Social history:: Smoking status: Patient reports the use of cigarette tobacco products, denies chronic smoking, but will smoke occasionally. - Family history:: not pertinent. Assessment: 10:10 Reassessment: Pt refused vital and met this nurse at Nurses station. Ambulated OTD. 5 Vital Signs: 05:14 BP 127 / 86; Pulse 82; Resp 16 S; Temp 98.6(O); Pulse Ox 99% on R/A; Weight 81.65 kg (R); Height 5 ft. 6 in. (167.64 cm) (R); Pain 0/10; 05:14 Body Mass Index 29.05 (81.65 kg, 167.64 cm) ED Course: 03:49 Patient arrived in ED. [facility] 05:15 Triage completed. 05:15 Arm band placed on Patient placed in waiting room, Patient notified of wait time. 08:12 Portillo Rincon MD is Attending Physician. [facility] 08:58 Yajaira Pope, RADHA is Primary Nurse. 10:10 No provider procedures requiring assistance completed. Patient did not have IV access ch5 during this emergency room visit. Administered Medications: 09:53 Drug: Bactrim (trimethoprim-sulfamethoxazole) (160 mg-800 mg (DS) 1 tablet Route: PO; ss 10:00 Follow up: Response: Medication administered at discharge.; Refused vitals stated " I ch5 am fine" Intake: Outcome: 09:52 Discharge ordered by . [facility] 10:10 Discharged to home ambulatory. ch5 10:11 Condition: good ch5 10:11 Discharge instructions given to patient, Instructed on Prescriptions given X 1. 10:12 Patient left the ED. 5 Signatures: Portillo Rincon MD MD cha Ballard, Brenda, RN RN bb Smirch, Shelby, RADHA RN Eileen Beaulieu Christopher, RN RN 5
[2021-07-26 10:18] VITALS: BP 127/86; TEMP 98.6; O2SAT 99
[2021-07-26] MEDS ORDERED: SMZ./TMP. 800/160 MG TABLET ONE (10:18)
== END 2021-07-26 10:12 | disposition home or self-care (01) ==
LOC: ER 03:45
DX: N39.0 Urinary tract infection, site not specified (principal); L55.0 Sunburn of first degree; F17.210 Nicotine dependence, cigarettes, uncomplicated; Z88.8 Allergy status to other drugs, medicaments and biological substances
CPT/HCPCS: 99283

== ENCOUNTER 2021-07-26 12:24 | Emergency (ER) | payer OTHER ==
--- NOTE | 2021-07-26 14:46 | ER ---
Nurse's Notes [facility] Name: Ailin Layne Age: 40 yrs Sex: Female : 1980 Arrival Date: 07/26/2021 Time: 12:25 Bed Waiting Private MD: Diagnosis: Assessment: 07/26 12:45 Reassessment: Called to triage. No answer. Registration staff reports that patient has ss left the lobby. 13:45 Reassessment: called to triage. No answer. Unable to locate patient. ss ED Course: : Patient arrived in ED. cl3 14:45 Patient's name was called from ER lobby. No response. sv Administered Medications: No medications were administered Outcome: 14:46 Patient left the ED. sv Signatures: Cristina Palma, RN RN Yajaira Poe RN RN ss Lewis, Charde cl3
== END 2021-07-26 14:46 | disposition left against medical advice (07) ==
LOC: ER 12:24
DX: Z02.9 Encounter for administrative examinations, unspecified (principal)

== ENCOUNTER 2021-07-27 13:32 | Emergency (ER) | payer OTHER ==
[2021-07-27 15:56] LABS: Absolute Lymphocytes (CBC) 1.4 K/uL (0.7-4.9); Basophils % 0.4 % (0-1.3); Hematocrit 41.2 % (36.0-45.0); Lymphocytes % 12.6 % (15.3-44.8); MPV 8.9 fL (7.6-11.3); RBC Red Blood Cell Count 4.49 M/uL (3.86-4.86)
[2021-07-27 16:19] LABS: Potassium 3.5 mmol/L (3.5-5.1)
--- NOTE | 2021-07-27 16:31 | RAD REPORT ---
EXAM DESCRIPTION: US - Extrem Venous W Compress Kee - 07/27/2021 4:24 pm CLINICAL HISTORY: Pain COMPARISON: None. TECHNIQUE: Real-time sonographic evaluation of the bilateral lower extremity deep venous systems was performed. FINDINGS: Normal compressibility, flow augmentation, phasic flow and spontaneous flow is identified in both the left and right lower extremity deep venous systems. No intraluminal filling defects seen. IMPRESSION: No DVT in either lower extremity.
[2021-07-27] MEDS ORDERED: NA CHLORIDE 0.9% 1,000 ML ONE (16:32)
--- NOTE | 2021-07-27 17:48 | EDPHYS ---
Physician Documentation [facility] Name: Ailin Layne Age: 40 yrs Sex: Female : 1980 Arrival Date: 07/27/2021 Time: 13:36 Bed 10 Private MD: [place] Physician Portillo Rincon HPI: 07/27 14:45 This 40 yrs old Female presents to ER via EMS with complaints of Leg Pain. jmm 14:45 The patient presents with pain. Onset: The symptoms/episode began/occurred gradually, jmm today. Modifying factors: The symptoms are alleviated by nothing. the symptoms are aggravated by nothing. Associated signs and symptoms: Pertinent negatives vomiting. This is a 40-year-old female with a history of bipolar and hypertension the presents emerged department with complaints of leg pain and spasming beginning today. Patient is concerned this may be due to dehydration. Patient states this has happened in the past, years ago. Patient denies any chest pain or shortness of breath.. Historical: - Allergies: 13:50 Latuda; sv 13:50 Seroquel; sv - PMHx: 13:50 Bipolar disorder; Hypertension; no meds yet; sv - PSHx: 13:50 section; sv - Immunization history:: Adult Immunizations unknown. - Social history:: Smoking status: . ROS: 14:45 Constitutional: Negative for fever, chills, and weight loss, Cardiovascular: Negative jmm for chest pain, palpitations, and edema, Respiratory: Negative for shortness of breath, cough, wheezing, and pleuritic chest pain. 14:45 MS/extremity: Positive for pain. 14:45 All other systems are negative. Exam: 14:45 Constitutional: This is a well developed, well nourished patient who is awake, alert, jmm and in no acute distress. Head/Face: atraumatic. Eyes: EOMI, no conjunctival erythema appreciated ENT: Moist Mucus Membranes Neck: Trachea midline, Supple Chest/axilla: Normal chest wall appearance and motion. Cardiovascular: Regular rate and rhythm. No edema appreciated Respiratory: Normal respirations, no respiratory distress appreciated Abdomen/GI: Non distended, soft Back: Normal ROM Skin: General appearance color normal MS/ Extremity: Moves all extremities, no obvious deformities appreciated, no edema noted to the lower extremities Neuro: Awake and alert, normal gait Psych: Behavior is normal, Mood is normal, Patient is cooperative and pleasant Vital Signs: 13:50 BP 120 / 70; Pulse 77; Resp 18; Temp 98.2; Pulse Ox 99% ; Weight 81 kg; Height 5 ft. 6 sv in. (167.64 cm); 17:30 BP 118 / 70; Pulse 101; Resp 18; Pulse Ox 98% on R/A; zb 13:50 Body Mass Index 28.82 (81.00 kg, 167.64 cm) sv MDM: 14:55 Patient medically screened. [facility] 17:46 Data reviewed: vital signs, nurses [facility]. [facility] 17:47 Counseling: I had a detailed discussion with the patient and/or guardian regarding: the [facility] historical points, exam findings, and any diagnostic results supporting the discharge/admit diagnosis, lab results, radiology results, the need for outpatient follow up, to return to the emergency department if symptoms worsen or persist or if there are any questions or concerns that arise at home. 07/27 15:36 Order name: CPK; Complete Time: 16:21 [facility] 07/27 15:36 Order name: BMP; Complete Time: 16:21 [facility] 07/27 15:36 Order name: Saline Lock; Complete Time: 15:56 [facility] 07/27 15:36 Order name: US Extremity Venous W Compression Kee; Complete Time: 16:38 [facility] 07/27 15:36 Order name: CBC with Diff; Complete Time: 16:15 [facility] Administered Medications: 16:18 Drug: NS 0.9% 1000 ml Route: IV; Rate: 1 bolus; Site: right antecubital; zb 17:18 Follow up: IV Status: Completed infusion; IV Intake: 1000ml zb Disposition: 07/28 05:31 Co-signature as Attending Physician, Portillo Rincon MD I agree with the assessment and [facility] plan of care. Disposition Summary: 07/27/21 17:47 Discharge Ordered Location: Home jm Condition: Stable jmm Diagnosis - Pain in leg, unspecified jmm - Heat exhaustion, unspecified jmm Followup: jmm - With: Private Physician - When: 2 - 3 days - Reason: Recheck today's complaints, Continuance of care, Re-evaluation by your physician Discharge Instructions: - Discharge Summary Sheet jmm - Musculoskeletal Pain jmm - Preventing Heat Exhaustion, Adult jmm Forms: - Medication Reconciliation Form jmm - Thank You Letter jmm - Antibiotic Education jmm - Prescription Opioid Use jmm Signatures: Dispatcher [employer] Cristina Mercer, Portillo Decker RN, MD MD cha Mickail, Joel, PA PA jmm Brown, Zipporah, RN RN zb
--- NOTE | 2021-07-27 17:48 | ER ---
Nurse's Notes [facility] Name: Ailin Layne Age: 40 yrs Sex: Female : 1980 Arrival Date: 07/27/2021 Time: 13:36 Bed 10 Private MD: Diagnosis: Pain in leg, unspecified;Heat exhaustion, unspecified Presentation: 07/27 13:49 Chief complaint: EMS states: bilateral leg pain, pt was laying in the grass outside of her apartment on EMS arrival. Coronavirus screen: Client denies travel out of the [place] in the last 14 days. At this time, the client does not indicate any symptoms associated with coronavirus-19. Ebola Screen: No symptoms or risks identified at this time. Risk Assessment: Do you want to hurt yourself or someone else? Patient reports no desire to harm self or others. Onset of symptoms was July 27, 2021. 13:49 Method Of Arrival: EMS: [facility] sv 13:49 Acuity: THAIS 4 sv 13:50 Initial Sepsis Screen: Does the patient meet any 2 criteria? No. Patient's initial sv sepsis screen is negative. Does the patient have a suspected source of infection? No. Patient's initial sepsis screen is negative. Triage Assessment: 13:51 General: Appears in no apparent distress. uncomfortable, Behavior is cooperative. Pain: sv Complains of pain in right leg and left leg. Neuro: Level of Consciousness is awake, alert, obeys commands. Respiratory: Respiratory effort is even, unlabored. Historical: - Allergies: 13:50 Latuda; sv 13:50 Seroquel; sv - PMHx: 13:50 Bipolar disorder; Hypertension; no meds yet; sv - PSHx: 13:50 section; sv - Immunization history:: Adult Immunizations unknown. - Social history:: Smoking status: . Screenin:14 Abuse screen: Denies threats or abuse. Denies injuries from another. Nutritional zb screening: No deficits noted. Tuberculosis screening: No symptoms or risk factors identified. Fall Risk None identified. Fall in past 12 months (25 points). No secondary diagnosis (0 pts). No IV (0 pts). Ambulatory Aid- None/Bed Rest/Nurse Assist (0 pts). Gait- Normal/Bed Rest/Wheelchair (0 pts) Mental Status- Oriented to own ability (0 pts). Total Roblero Fall Scale indicates High Risk Score (45 or more points). Fall prevention measures have been instituted. Side Rails Up X 2 Placed Close to Nursing Station Frequent Obs/Assessments Occuring As available patient and family educated on Fall Prevention Program and Strategies. Assessment: 16:15 General: Appears in no apparent distress. uncomfortable, Behavior is cooperative. Pain: zb Complains of pain in left leg and right leg Pain currently is 0 out of 10 on a pain scale. at worst was 10 out of 10 on a pain scale. Quality of pain is described as aching, Aggravated by increased activity, repositioning, weight bearing, Also complains of no other associated symptoms. Neuro: Level of Consciousness is awake, alert, obeys commands, Oriented to person, place, time, situation. Cardiovascular: Patient's skin is warm and dry. GI: Abdomen is obese. Derm: Skin is intact, is healthy with good turgor. Musculoskeletal: Reports pain in left leg and right leg since about a week . patient also reports some swelling. 17:20 Reassessment: Patient appears in no apparent distress at this time. Patient and/or zb family updated on plan of care and expected duration. Pain level reassessed. Patient is alert, oriented x 3, equal unlabored respirations, skin warm/dry/pink. no c/o pain at this time. IV fluid infusing. Patient denies pain at this time. 17:35 Reassessment: patient given PO fluid and food. no c/o at this time. zb 18:32 Reassessment: patient provided clothes. given soda. wheeled outside. no c/o at this zb time. Vital Signs: 13:50 BP 120 / 70; Pulse 77; Resp 18; Temp 98.2; Pulse Ox 99% ; Weight 81 kg; Height 5 ft. 6 sv in. (167.64 cm); 17:30 BP 118 / 70; Pulse 101; Resp 18; Pulse Ox 98% on R/A; zb 13:50 Body Mass Index 28.82 (81.00 kg, 167.64 cm) sv ED Course: 13:36 Patient arrived in ED. ja2 13:49 Triage completed. sv 13:50 Arm band placed on. sv 14:39 Sergo Hagan PA is PHCP. jmm 14:39 Portillo Rincon MD is Attending Physician. darrion 15:31 Joann Moss, RN is Primary Nurse. zb 16:17 Patient has correct armband on for positive identification. Call light in reach. Side zb rails up X 1. Pulse ox on. NIBP on. 16:17 Inserted saline lock: in right antecubital area, using aseptic technique. ,using zb aseptic technique. collected by er staff. 16:24 US Extremity Venous W Compression Kee In Process Unspecified. EDMS 18:10 No provider procedures requiring assistance completed. IV discontinued, intact, zb bleeding controlled, No redness/swelling at site. Pressure dressing applied. Administered Medications: 16:18 Drug: NS 0.9% 1000 ml Route: IV; Rate: 1 bolus; Site: right antecubital; zb 17:18 Follow up: IV Status: Completed infusion; IV Intake: 1000ml zb Intake: 17:18 IV: 1000ml; Total: 1000ml. zb Outcome: 17:47 Discharge ordered by MD. jmm 18:10 Discharged to home ambulatory. zb 18:10 Condition: stable 18:10 Discharge instructions given to patient, Instructed on discharge instructions, follow up and referral plans. Demonstrated understanding of instructions, follow-up care. 18:33 Patient left the ED. zb Signatures: Dispatcher [employer] EDCristina Linares, RN Sergo Lebron PA PA jmm Brown, Zipporah, Jennifer Cabrera RN
[2021-07-27 18:47] VITALS: TEMP 98.2
[2021-07-27 18:49] VITALS: BP 118/70; O2SAT 98
== END 2021-07-27 18:33 | disposition home or self-care (01) ==
LOC: ER 13:32
DX: T67.5XXA Heat exhaustion, unspecified, initial encounter (principal); M79.604 Pain in right leg; I10 Essential (primary) hypertension; Z88.8 Allergy status to other drugs, medicaments and biological substances
CPT/HCPCS: 85025; 80048; 36415; 82550; 93970; 96360; 99284; J7030

== ENCOUNTER 2021-07-27 20:06 | Emergency (ER) | payer OTHER ==
--- NOTE | 2021-07-27 22:21 | ER ---
Nurse's Notes [facility] Name: Ailin Layne Age: 40 yrs Sex: Female : 1980 Arrival Date: 07/27/2021 Time: 20:10 Bed Waiting Private MD: Diagnosis: Presentation: 07/27 22:06 Chief complaint: Patient states: pain in rectum in private area, pain started today, em also reports "infection in my body" does not know where specifically the infection, denies problems urinating. Coronavirus screen: Client denies travel out of the [place] in the last 14 days. Ebola Screen: Patient negative for fever greater than or equal to 101.5 degrees Fahrenheit, and additional compatible Ebola Virus Disease symptoms Patient denies exposure to infectious person. Patient denies travel to an Ebola-affected area in the 21 days before illness onset. No symptoms or risks identified at this time. Initial Sepsis Screen: Does the patient meet any 2 criteria? No. Patient's initial sepsis screen is negative. Does the patient have a suspected source of infection? No. Patient's initial sepsis screen is negative. Risk Assessment: Do you want to hurt yourself or someone else? Patient reports no desire to harm self or others. Onset of symptoms was July 27, 2021. 22:06 Method Of Arrival: Ambulatory em 22:06 Acuity: THAIS 3 em MEDIA PLANNER / BUYER: 22:08 LMP 07/27/2021 em Historical: - Allergies: 22:08 Latuda; em 22:08 Seroquel; em - PMHx: 22:08 Bipolar disorder; Hypertension; no meds yet; em - PSHx: 22:08 section; em - Immunization history:: Client reports receiving the 2nd dose of the Covid vaccine. - Social history:: Smoking status: Patient reports the use of cigarette tobacco products, denies chronic smoking, but will smoke occasionally. Vital Signs: 22:06 BP 142 / 97; Pulse 101; Resp 18; Temp 97.8; Pulse Ox 99% on R/A; Weight 81.65 kg; em Height 5 ft. 6 in. (167.64 cm); Pain 10/10; 22:06 Body Mass Index 29.05 (81.65 kg, 167.64 cm) em ED Course: 20:10 Patient arrived in ED. bp1 22:08 Triage completed. em 22:08 Arm band placed on. em Administered Medications: No medications were administered Outcome: :20 Patient left the ED. bb Signatures: Sina Lomeli RN RN em Brianna Perez RN RN bb Eileen Beaulieu [facility]
[2021-07-27 22:28] VITALS: BP 142/97; TEMP 97.8; O2SAT 99
== END 2021-07-27 22:20 | disposition left against medical advice (07) ==
LOC: ER 20:06
DX: Z53.21 Procedure and treatment not carried out due to patient leaving prior to being seen by health care provider (principal)
CPT/HCPCS: 99281

== ENCOUNTER 2021-07-28 10:43 | Emergency (ER) | payer OTHER ==
[2021-07-28 11:48] LABS: Urine Blood Negative (Negative); Urine Glucose Negative (Negative); Urine Protein 2+ (Negative); Urine pH 6.5 (5.0-7.0)
[2021-07-28] MEDS ORDERED: CEFTRIAXONE 250 MG/VIAL ONE (12:00)
[2021-07-28] MEDS ORDERED: AZITHROMYCIN 250 MG TAB ONE (12:00)
--- NOTE | 2021-07-28 12:24 | ER ---
N[facility]'s Notes [facility] Name: Ailin Layne Age: 40 yrs Sex: Female : 1980 Arrival Date: 07/28/2021 Time: 10:44 Bed 25 Private MD: Diagnosis: Other specified abnormal uterine and vaginal bleeding-with vaginal discharge;Pain in foot and toes-bilateral Onychomycosis Presentation: 07/28 10:44 Chief complaint: Patient states: Vaginal discharge and bilateral foot pain. Coronavirus ss screen: Client denies travel out of the [place] in the last 14 days. Ebola Screen: Patient denies exposure to infectious person. Patient denies travel to an Ebola-affected area in the 21 days before illness onset. Initial Sepsis Screen: Does the patient meet any 2 criteria? No. Patient's initial sepsis screen is negative. Does the patient have a suspected source of infection? No. Patient's initial sepsis screen is negative. Risk Assessment: Do you want to hurt yourself or someone else? Patient reports no desire to harm self or others. Onset of symptoms is unknown. 10:44 Method Of Arrival: EMS: [facility] ss 10:44 Acuity: THAIS 4 ss Historical: - Allergies: 10:47 Latuda; ss 10:47 Seroquel; ss - PMHx: 10:47 Bipolar disorder; Hypertension; no meds yet; ss - PSHx: 10:47 section; ss - Social history:: Patient/guardian denies using alcohol, street drugs, The patient lives with family. - Family history:: not pertinent. Screenin:52 Abuse screen: Denies threats or abuse. Nutritional screening: No deficits noted. vg1 Tuberculosis screening: No symptoms or risk factors identified. Fall Risk No fall in past 12 months (0 pts). No secondary diagnosis (0 pts). No IV (0 pts). Ambulatory Aid- None/Bed Rest/Nurse Assist (0 pts). Gait- Normal/Bed Rest/Wheelchair (0 pts) Mental Status- Oriented to own ability (0 pts). Total Roblero Fall Scale indicates No Risk (0-24 pts). Assessment: 10:51 General: Appears in no apparent distress. comfortable, Behavior is calm, cooperative. vg1 Pain: Complains of pain in right foot and left foot Pain currently is 7 out of 10 on a pain scale. Pain began 1 hour ago. Neuro: Level of Consciousness is awake, alert, obeys commands, Oriented to person, place, time, situation. Cardiovascular: Patient's skin is warm and dry. Respiratory: Airway is patent Respiratory effort is even, unlabored. GI: No signs and/or symptoms were reported involving the gastrointestinal system. : Reports discharge, green, yellow, since x3 days vaginal itching. EENT: No signs and/or symptoms were reported regarding the EENT system. Derm: Skin is intact, Skin is pink, warm \T\ dry. Musculoskeletal: Circulation, motion, and sensation intact. 11:52 Reassessment: Patient appears in no apparent distress at this time. No changes from vg1 previously documented assessment. Patient and/or family updated on plan of care and expected duration. Pain level reassessed. Patient is alert, oriented x 3, equal unlabored respirations, skin warm/dry/pink. 12:39 Reassessment: Patient appears in no apparent distress at this time. No changes from vg1 previously documented assessment. Patient is alert, oriented x 3, equal unlabored respirations, skin warm/dry/pink. Vital Signs: 10:44 BP 101 / 72; Pulse 88; Resp 15; Pulse Ox 95% on R/A; ss 10:52 BP 111 / 54; Pulse 84; Resp 16; Pulse Ox 95% on R/A; vg1 11:52 BP 114 / 60; Pulse 78; Resp 18; Pulse Ox 95% on R/A; vg1 12:40 BP 128 / 82; Pulse 70; Resp 16; Pulse Ox 95% on R/A; vg1 ED Course: 10:44 Patient arrived in ED. ss 10:47 Triage completed. ss 10:47 Arm band placed on right wrist. ss 10:51 Holly Johnson, RN is Primary Nurse. vg1 10:52 Patient has correct armband on for positive identification. Placed in gown. Bed in low vg1 position. Call light in reach. Side rails up X 1. 10:59 Buzz Ramírez MD is Attending Physician. ma2 12:24 Clarence Parr MD is Referral Physician. ma2 12:39 No provider procedures requiring assistance completed. Patient did not have IV access vg1 during this emergency room visit. Administered Medications: 11:43 Drug: AZITHromycin 1000 mg Route: PO; kh1 12:39 Follow up: Response: No adverse reaction vg1 11:43 Drug: Rocephin (cefTRIAXone) 250 mg Route: IM; Site: left gluteus; kh1 12:39 Follow up: Response: No adverse reaction vg1 Outcome: 12:24 Discharge ordered by . erin2 12:39 Discharged to home ambulatory. vg1 12:39 Condition: stable 12:39 Discharge instructions given to patient, Instructed on discharge instructions, follow up and referral plans. medication usage, Demonstrated understanding of instructions, follow-up care, medications, Prescriptions given X 1. 12:40 Patient left the ED. vg1 Signatures: Yajaira Pope RN RN ss Buzz Ramírez MD MD ma2 Garcia, Victoria, RN RN 1 [facility]
--- NOTE | 2021-07-28 12:25 | EDPHYS ---
Physician Documentation [facility] Name: Ailin Layne Age: 40 yrs Sex: Female : 1980 Arrival Date: 07/28/2021 Time: 10:44 Bed 25 Private MD: ED Physician Buzz Ramírez HPI: 07/28 12:05 This 40 yrs old Female presents to ER via EMS with complaints of Vaginal ma2 Discharge, Foot Pain. 12:05 The patient presents with perineal itching, a possible exposure to a sexually ma2 transmitted disease, Vaginal discharge, and vaginal bleeding intermittent for the last week.. Onset: The symptoms/episode began/occurred gradually, 2 week(s) ago. Associated signs and symptoms: Pertinent negatives: cramping, dysuria, hematuria. Severity of symptoms: At their worst the symptoms were mild, in the emergency department the symptoms are unchanged. Historical: - Allergies: 10:47 Latuda; ss 10:47 Seroquel; ss - PMHx: 10:47 Bipolar disorder; Hypertension; no meds yet; ss - PSHx: 10:47 section; ss - Social history:: Patient/guardian denies using alcohol, street drugs, The patient lives with family. - Family history:: not pertinent. ROS: 12:05 Positive for Negative for urinary symptoms, flank pain, difficulty urinating, ma2 bladder incontinence, missed period. 12:05 Constitutional: Negative for fever, chills, and weight loss. 12:05 All other systems are negative. Exam: 12:05 Constitutional: This is a well developed, well nourished patient who is awake, alert, ma2 and in no acute distress. Head/Face: Normocephalic, atraumatic. Eyes: Pupils equal round and reactive to light, extra-ocular motions intact. Lids and lashes normal. Conjunctiva and sclera are non-icteric and not injected. Cornea within normal limits. Periorbital areas with no swelling, redness, or edema. ENT: Nares patent. No nasal discharge, no septal abnormalities noted. Tympanic membranes are normal and external auditory canals are clear. Oropharynx with no redness, swelling, or masses, exudates, or evidence of obstruction, uvula midline. Mucous membranes moist. Neck: Trachea midline, no thyromegaly or masses palpated, and no cervical lymphadenopathy. Supple, full range of motion without nuchal rigidity, or vertebral point tenderness. No Meningismus. Chest/axilla: Normal chest wall appearance and motion. Nontender with no deformity. No lesions are appreciated. Cardiovascular: Regular rate and rhythm with a normal S1 and S2. No gallops, murmurs, or rubs. Normal PMI, no JVD. No pulse deficits. Respiratory: Lungs have equal breath sounds bilaterally, clear to auscultation and percussion. No rales, rhonchi or wheezes noted. No increased work of breathing, no retractions or nasal flaring. Abdomen/GI: Soft, non-tender, with normal bowel sounds. No distension or tympany. No guarding or rebound. No evidence of tenderness throughout. MS/ Extremity: Pulses equal, no cyanosis. Neurovascular intact. Full, normal range of motion. Neuro: Awake and alert, GCS 15, oriented to person, place, time, and situation. Cranial nerves II-XII grossly intact. Motor strength 5/5 in all extremities. Sensory grossly intact. Cerebellar exam normal. Normal gait. Vital Signs: 10:44 BP 101 / 72; Pulse 88; Resp 15; Pulse Ox 95% on R/A; ss 10:52 BP 111 / 54; Pulse 84; Resp 16; Pulse Ox 95% on R/A; vg1 11:52 BP 114 / 60; Pulse 78; Resp 18; Pulse Ox 95% on R/A; vg1 12:40 BP 128 / 82; Pulse 70; Resp 16; Pulse Ox 95% on R/A; vg1 MDM: 10:59 Patient medically screened. ma2 12:05 Differential diagnosis: dysfunctional uterine bleeding, dysmenorrhea, menorrhea, ma2 nonspecific abdominal pain, urinary tract infection, vaginosis. 12:23 Data reviewed: vital signs, nurses notes. Counseling: I had a detailed discussion with ma2 the patient and/or guardian regarding: the historical points, exam findings, and any diagnostic results supporting the discharge/admit diagnosis, the presence of at least one elevated blood pressure reading (>120/80) during this emergency department visit, the need for outpatient follow up. Response to treatment: the patient's symptoms have markedly improved after treatment. ED course: And has leukocyte esterase in the urine, however she does not have any dysuria or symptoms of UTI.. 07/28 11:47 Order name: Urine Dipstick-Ancillary; Complete Time: 12:23 EDMS 07/28 11:52 Order name: Urine Culture vg1 07/28 11:07 Order name: Urine Dipstick-Ancillary (obtain specimen); Complete Time: 11:52 ma2 07/28 11:07 Order name: Urine Test (obtain specimen); Complete Time: 11:52 ma2 Administered Medications: 11:43 Drug: AZITHromycin 1000 mg Route: PO; kh1 12:39 Follow up: Response: No adverse reaction vg1 11:43 Drug: Rocephin (cefTRIAXone) 250 mg Route: IM; Site: left gluteus; kh1 12:39 Follow up: Response: No adverse reaction vg1 Disposition Summary: 07/28/21 12:24 Discharge Ordered Location: Home ma2 Condition: Stable ma2 Diagnosis - Other specified abnormal uterine and vaginal bleeding - with vaginal discharge ma2 - Pain in foot and toes - bilateral Onychomycosis ma2 Followup: ma2 - With: - When: Tomorrow - Reason: Continuance of care Discharge Instructions: - Discharge Summary Sheet ma2 - Preventing Sexually Transmitted Infections, Adult ma2 Forms: - Medication Reconciliation Form ma2 - Thank You Letter ma2 - Antibiotic Education ma2 - Prescription Opioid Use ma2 - Work release form eb Prescriptions: - terbinafine HCl 250 mg Oral tablet - take 1 tablet by ORAL route once daily for 12 weeks; 84 tablet; Refills: 0, ma2 Product Selection Permitted Signatures: Dispatcher [employer] Yajaira Soliz RN RN Buzz Ramírez MD MD sc2 [facility] Holly Johnson RN 1
[2021-07-28 12:45] VITALS: O2SAT 95
[2021-07-28 12:49] VITALS: BP 128/82
== END 2021-07-28 12:40 | disposition home or self-care (01) ==
LOC: ER 10:43
DX: N89.8 Other specified noninflammatory disorders of vagina (principal); B35.1 Tinea unguium; I10 Essential (primary) hypertension; Z88.8 Allergy status to other drugs, medicaments and biological substances
CPT/HCPCS: 87088; 87086; 81003; 96372; 99283; J0696

== ENCOUNTER 2021-07-30 10:48 | Emergency (ER) | payer OTHER ==
--- NOTE | 2021-07-30 14:04 | ER ---
Nurse's Notes [facility] Name: Ailin Layne Age: 40 yrs Sex: Female : 1980 Arrival Date: 07/30/2021 Time: 10:48 Bed Waiting Private MD: Diagnosis: Presentation: 07/30 11:45 Chief complaint: EMS states: foot pain. Pt has been seen in ER for same complaints ss within the past two days. 11:45 Method Of Arrival: EMS: [facility] ss 11:45 Acuity: THAIS 4 ss Assessment: 11:45 Reassessment: called from lobby, no answer. Unable to locate patient. ss 12:15 Reassessment: Called to triage, no answer. Unable to locate patient. ED Course: 10:48 Patient arrived in ED. ds1 11:46 Triage completed. ss Administered Medications: No medications were administered Outcome: 14:03 Patient left the ED. Signatures: Angie Vang ds1 Yajaira Pope, RN RN
== END 2021-07-30 14:03 | disposition left against medical advice (07) ==
LOC: ER 10:48
DX: Z53.21 Procedure and treatment not carried out due to patient leaving prior to being seen by health care provider (principal)
CPT/HCPCS: 99282

== ENCOUNTER 2021-07-30 14:24 | Emergency (ER) | payer OTHER ==
--- NOTE | 2021-07-30 17:04 | ER ---
Nurse's Notes [facility] Name: Ailin Layne Age: 40 yrs Sex: Female : 1980 Arrival Date: 07/30/2021 Time: 14:27 Bed Waiting Private MD: Diagnosis: Presentation: 07/30 14:43 Chief complaint: Patient states: L leg pain and Pain to bottom of feet from walking ss that began 2-3 days ago. Pt believes she may have a pinched nerve. Coronavirus screen: Client denies travel out of the [place] in the last 14 days. Ebola Screen: Patient denies exposure to infectious person. Patient denies travel to an Ebola-affected area in the 21 days before illness onset. Initial Sepsis Screen: Does the patient meet any 2 criteria? No. Patient's initial sepsis screen is negative. Does the patient have a suspected source of infection? No. Patient's initial sepsis screen is negative. Risk Assessment: Do you want to hurt yourself or someone else? Patient reports no desire to harm self or others. Onset of symptoms was July 27, 2021. 14:43 Method Of Arrival: Ambulatory ss 14:43 Acuity: THAIS 4 ss Historical: - Allergies: 14:45 Latuda; ss 14:45 Seroquel; ss - PMHx: 14:45 Bipolar disorder; Hypertension; no meds yet; ss - PSHx: 14:45 section; ss - Immunization history:: Client reports receiving the 2nd dose of the Covid vaccine. - Social history:: Smoking status: Patient reports the use of cigarette tobacco products, smokes one-half pack cigarettes per day. Assessment: 17:03 Reassessment: Call to exam room unable to locate patient. ss Vital Signs: 14:43 BP 108 / 81; Pulse 92; Resp 16; Temp 98.7(TE); Pulse Ox 99% on R/A; Height 5 ft. 7 in. ss (170.18 cm); ED Course: 14:27 Patient arrived in ED. ds1 14:45 Triage completed. ss 14:45 Arm band placed on right wrist. ss 17:01 Jose Novoa NP is PHCP. pm1 17:01 Buzz Ramírez MD is Attending Physician. pm1 Administered Medications: No medications were administered Outcome: 17:03 Eloped from waiting room. ss 17:03 Patient left the ED. Signatures: Angie Vang ds1 Yajaira Pope, RN RN ss Jose Novoa, HOME CARE MUSIC THERAPIST HOME CARE MUSIC THERAPIST pm1
[2021-07-30 17:09] VITALS: BP 108/81; TEMP 98.7; O2SAT 99
== END 2021-07-30 17:03 | disposition left against medical advice (07) ==
LOC: ER 14:24
DX: Z53.21 Procedure and treatment not carried out due to patient leaving prior to being seen by health care provider (principal)
CPT/HCPCS: 99281